=== PATIENT | female | born 1935 | race Caucasian/White ===

== ENCOUNTER 2023-03-09 09:02 | Emergency (ER) | payer OTHER ==
--- OUTSIDE RECORDS SUMMARY | 2023-03-09 09:05 | XMS REPORT | Clinical Summary ---
:1935 Author Organization [facility] Address [address] [place] [address] Care Team Providers Name Role Phone Erlinda Connolly MD Unavailable Erlinda Connolly MD Unavailable Marie Walker APRN Unavailable Boni Connolly MD Unavailable Terra Kwan MD Primary Care Provider Allergies Active Allergy Reactions Severity Noted Date Comments Grtxfxza-Sysndvmwjz-Jeylnwwde 07/09/2015 Inflamation Medications Medication Sig Dispensed Refills Start Date End Date Status carvedilol (COREG) Take 6.25 mg by 0 Active 6.25 mg tablet mouth daily. pravastatin Take 40 mg by 0 Acti ve (PRAVACHOL) 40 mg mouth twice tablet daily. montelukast Take 10 mg by 0 Acti ve (SINGULAIR) 10 mg mouth daily. tablet acetaminophen Take 500 mg by 0 A ctive (TYLENOL) 500 mg mouth as needed. tablet furosemide (LASIX) 20 Take 20 mg by 0 07/13/2017 Active mg tablet mouth every morning. cloNIDine HCl TAKE 1 TABLET BY 1 02/26/2019 Active (CATAPRES) 0.1 mg MOUTH ONCE DAILY tablet nystatin (MYCOSTATIN) Apply topically 30 g 1 03/26/2019 Active 100,000 units/g to affected powderIndications: area(s) 3 (three) Malignant neoplasm of times a day. Left right female breast, breast skin fold not otherwise specified, Mucocutaneous candidiasis tamoxifen (NOLVADEX) Take 1 tablet (20 45 tablet 0 02/06/2020 Active 20 mg mg) by mouth tabletIndications: daily. Personal history of malignant neoplasm of breast venlafaxine Take 1 capsule 45 capsule 0 02/06/2020 A ctive (EFFEXOR-XR) 37.5 mg (37.5 mg) by 24 hr mouth daily. capsuleIndications: Personal history of malignant neoplasm of breast Active Problems Problem Noted Date Menopausal flushing 08/04/2015 Infiltrating lobular carcinoma of breast 04/03/2015 Surgical History Surgery Date Site/Laterality Comments KNEE SURGERY APPENDECTOMY Medical History Medical History Date Comments Breast cancer Hypertension Hyperlipidemia Family History Medical History Relation Name Comments -Head and Neck Other niece -Breast cancer Sister -Head and Neck Sister -Lymphoma Sister Relation Name Status Comments Other niece Alive Sister Social History Tobacco Use Types Packs/Day Years Used Date Smoking Tobacco: Never Smokeless Tobacco: Never Alcohol Use Standard Drinks/Week Comments No 0 (1 standard drink = 0.6 oz pure alcoho l) Sex Assigned at Date Recorded Not on file Obstetrics History Last Filed Vital Signs Not on file Plan of Treatment Health Maintenance Due Date Last Done Comments COVID-19 Vaccination (#1) 11/09/1940 Results Not on fileafter 03/09/2022 Insurance Payer Benefit Plan / Subscriber ID Effective Dates Phone Addre ss Type Group MEDICARE MEDICARE PART [id number] 1999-Yared [phone] [facility] A AND B t 2 SOLUTIONS [address] [place] [address] GENERIC GENERIC [id number] 2016-Yared [phone] [address] [address] [place] [address] [place] [address] Bessie Herman Personal/Family Self 1935 [id number] [place] [address] ([address]) [address] [place] [address] Bessie Herman Personal/Family Self 1935 [id number] [address] [place] [address] Care Teams Grades 1 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
--- OUTSIDE RECORDS SUMMARY | 2023-03-09 09:10 | XMS REPORT | Continuity of Care Document ---
:1935 Author Organization [facility] t Address [address] [place] [address] [place] [id number] Care Team Providers Name Role Phone Brenda Irizarry MD Primary Care Physician SYSTEM, PROVIDER NOT IN Attending Clinician Unavailable Erlinda Connolly Attending Clinician BRENDA IRIZARRY Attending Clinician Unavailable SPIKE COLLINS Attending Clinician Unavailable Lynette Chang Attending Clinician PUJA DAVILA APRN Attending Clinician Unavailable BENITO BAEZ Attending Clinician Unavailable JOYCE RAMSEY M.D. Attending Clinician Unavailable Swathi Wilson Attending Clinician Tobin Castorena Attending Clinician PUJA DAVILA, DAVID Attending Clinician Unavailable Joyce Ramsey Attending Clinician Raul Diaz Attending Clinician VISIT, NURSE STRB XRLIZZY Attending Clinician Unavailable Boni Connolly Attending Clinician BENITO BAEZ Admitting Clinician Unavailable Joyce Ramsey Admitting Clinician Rual Diaz Admitting Clinician Payers Payer Name Policy Type Policy Number Effective Date Expiration Date S ource MEDICARE PART A [id number] 1999 AND B 00:00:00 GENERIC [id number] 2016 00:00:00 Problems Condition Condition Condition Status Onset Resolution Last Treating Co mments Source Name Details Category Date Date Treatment Clinician Date Asthma Asthma Diagnosis Active 2022-11-20 Me moria (disorder) (disorder) 11-17 10:25:15 l Active 00:00: [place] 11/17/2022 00 Diagnosis 11/20/2022 Medical Group, OPID Pearson, Pearson,[facility] Family Medicine [place] Gastroesop Gastroeso Diagnosis Active 2022-11-20 Memoria hageal phageal 11-17 10:25:15 l reflux reflux 00:00: [place] disease disease 00 (disorder) (disorder) Active 11/17/2022 Diagnosis 11/20/2022 Medical Group, OPID Pearson, Pearson,[facility] Family [facility] [place] Z85.3 - Z85.3 - Diagnosis Active 2018-062020-03-24 Memoria PERSONAL PERSONAL 0-10 11:03:00 l HISTORY OF HISTORY OF 00:01: He rmann MALIGNANT MALIGNANT 00 Active 03/28/2019 OPID Pearson C50.911 - C50.911 - Diagnosis Active 2019-03-20 Memoria MALIGNANT MALIGNANT 3- 11:20:00 l NEOPLASM NEOPLASM 00:01: Conner [facility]well [facility] S[facility] Active 09/06/2018 OPID Pearson C50.919 - C50.919 Diagnosis Active 2016-01-19 Memoria MALIGNANT - 3- 10:10:00 l NEOPLASM MALIGNANT 00:01: Maribeth nn OF UNSP NEOPLASM 00 SIT OF UNSP SIT Active 08/18/2015 OPID Pearson Menopausal Menopausal Disease Active U lashell flushing flushing 2-16 ity of 00:00: [place] 00 MD [facility] Infiltrati Infiltrati Disease Active 2014-06 U lashell ng lobular ng lobular 0-16 it y of carcinoma carcinoma [place] breast of breast 00 MD [facility] Lobular Lobular Problem Active 2022-01-21 Me colin carcinoma carcinoma 8-07 03:12:18 l of breast of breast 00:00: Herm gunnar (disorder) (disorder) 00 Active 01/23/2015 Problem 01/21/2022 Data migrated from [employer] on 02/07/15. Medical Group, OPID Pearson, Pearson Breast Breast Problem Active 2016-01-22 John denise lump lump 7-16 00:03:48 l (finding) (finding) 00:00: Herm gunnar Active 00 01/01/2015 Problem 01/22/2016 Data migrated from [employer] on 01/21/15. OPID Pearson Acute Acute Problem Active 2016-01-22 Memor ia sinusitis sinusitis 5- 00:03:48 l (disorder) (disorder) 00:00: He renée Active 00 10/27/2014 Problem 01/22/2016 Data migrated from [employer] on 01/21/15.
Data migrated from [employer] on 01/03/15.<b r/>Data migrated from [employer] on 01/02/15.<b r/>Data migrated from [employer] on 12/24/14. OPID Pearson ABDOMINAL ABDOMINAL Diagnosis Active 2014-09-23 Memoria PAIN-789.0 PAIN-789.0 2-23 07:56:00 l / RECTAL / RECTAL 00:00: Conner maxwell BLEEDING-5 BLEEDING-5 00 Active 08/11/2014 Pearson Chronic Chronic Problem Active 2022-01-21 Me moria neck pain neck pain 6-13 03:12:18 l (finding) (finding) 00:00: Herm gunnar Active 00 11/29/2013 Problem 01/21/2022 Data migrated from [employer] on 11/15/14. 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 History of History of Problem Resolve [place] essential essential d Phys ici hypertensi hypertensi an s on on History of History of Problem Resolve [place] Gastric Gastric d Physici reflux reflux ans History of History of Problem Resolve [place] [facility] d Physici cholestero cholestero an s l l UTI UTI Problem Active [place] (urinary (urinary Physic i tract tract ans infection) infection) Post-opera Post-opera Problem Active U T tive state tive state Ph ysici ans Postop Postop Problem Active UT check check Physici ans Renal Renal Problem Active [place] insufficie insufficie Ph ysici ncy ncy ans Retained Retained Problem Active [place] suture, suture, Physici subsequent subsequent an s encounter encounter 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 Physici ans Malignant Malignant Problem Resolve 2022-01-21 Memoria tumor of tumor of d 03:12:18 l breast breast [place] (disorder) (disorder) Resolved Problem 01/21/2022 Medical Group, OPID Pearson, Pearson Dysuria Dysuria Problem Resolve 2022-01-21 M emoria (finding) (finding) d 03:12:18 l Resolved [place] Problem 01/21/2022 Medical Group, OPI Pearson, Pearson History of History Problem Resolve 2022-01-21 Memoria total knee of total d 03:12:18 l arthroplas knee Conner n ty arthroplas (situation ty ) (situation ) Resolved Problem 01/21/2022 Medical Group, OPID Pearson, Pearson Acute Acute Problem Active 2017-11-30 Memor ia urinary urinary 11:32:06 l tract tract Vadim infection infection (disorder) (disorder) Active Problem 11/30/2017 Medical Group, OPID Pearson, Pearson Clostridiu Clostridi Problem Active 2022-01-21 Memoria m um 03:12:18 l difficile difficile Herm gunnar (organism) (organism) Active Problem 01/21/202215: +C.diffici le - Stool
Problem added by Discern Expert. 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 Pearson,[facility] Dependent Dependent Problem Active 2022-11-20 Memoria edema edema 10:25:15 l (finding) (finding) Herm gunnar Active Problem 11/20/2022 Medical Group,[facility] Hyperlipid Hyperlipi Problem Active 2022-11-20 Memoria emia demia 10:25:15 l (disorder) (disorder) He rmann Active Problem 11/20/2022 Medical Group, OPID Pearson,[facility] Incontinen Incontine Problem Active 2022-11-20 Memoria ce nce 10:25:15 l (finding) (finding) Herm gunnar Active Problem 11/20/2022 Medical Group, OPID Pearson,[facility] Long-term Problem Active 2022-11-20 Me moria current Long-term 10:25:15 l use of current [place] drug use of therapy drug (situation therapy ) (situation ) Active Problem 11/20/2022 Medical Group, OPID Pearson,[facility] Family Medicine [facility] Low back Low back Problem Active 2022-11-20 Memoria pain pain 10:25:15 l (disorder) (disorder) He rmann Active Problem 11/20/2022 Medical Group, OPID Pearson,[facility] Patient Patient Problem Active 2022-11-20 Me moria encounter encounter 10:25:15 l status status Vadim (finding) (finding) Active Problem 11/20/2022 Medical Group, OPID Pearson,[facility] Allergic Allergic Problem Active 2016-01-22 Memoria dispositio dispositio 00:03:48 l n n Vadim (disorder) (disorder) Active Problem 01/22/2016 OPID Pearson Cholestero Problem Active 2016-01-22 M emoria l Cholestero 00:03:48 l (substance l Conner n ) (substance ) Active Problem 01/22/2016 OPID Pearson Diarrhea Diarrhea Problem Active 2016-01-22 Memoria (finding) (finding) 00:03:48 l Active Vadim Problem 01/22/2016 OPID Pearson Hypertensi Hypertens Problem Active 2016-01-22 Memoria ve tyrone 00:03:48 l disorder, disorder, Herm gunnar systemic systemic arterial arterial (disorder) (disorder) Active Problem 01/22/2016 OPID Pearson Hypertensi Hypertens Problem Active 2016-01-22 Memoria ve episode tyrone 00:03:48 l (disorder) episode Maribeth nn (disorder) Active Problem 01/22/2016 Data migrated from [facility] on 11/15/14. OPID Pearson Rectal Rectal Problem Active 2016-01-22 John denise hemorrhage hemorrhage 00:03:48 l (disorder) (disorder) He rmann Active Problem 01/22/2016 OPID Pearson Z12.31 - Z12.31 - Diagnosis Active 2022-05-13 Memoria ENCNTR ENCNTR 11:02:00 l SCREEN SCREEN [place] MAMMOGRAM MAMMOGRAM FOR MA FOR MA Active OPID Pearson ABDMNAL ABDMNAL Diagnosis Active 2014-09-23 Memoria PAIN PAIN 07:56:00 l UNSPCF UNSPCF [place] SITE SITE Active Pearson Datatype(D Datatype( Diagnosis Active 2014-09-23 Memoria G1.4)- DG1.4)- 07:56:00 l Active Conner n Pearson Abdominal Problem Resolve 2016-01-22 2016-01-22 Memoria pain Abdominal d 2-20 00:03:48 00:03:48 l (finding) pain 00:00: [place] (finding) 00 Resolved 08/08/2014 Problem 01/22/2016 Data migrated from [employer] on 12/24/14. OPID Pearson Altered Altered Problem Resolve 2016-01-22 2016-01-22 Memoria bowel bowel d 2-20 00:03:48 00:03:48 l function function 00:00: Conner n (finding) (finding) 00 Resolved 08/08/2014 Problem 01/22/2016 Data migrated from [employer] on 12/24/14. OPID Pearson Melena Melena Problem Resolve 2016-01-22 2016-01-22 Memoria (disorder) (disorder) d 2-20 00:03:48 00:03:48 l Resolved 00:00: [place] 08/08/2014 00 Problem 01/22/2016 Data migrated from [employer] on 12/24/14. OPID Pearson Rectal Rectal Problem Resolve 2016-01-22 2016-01-22 Memoria pain pain d 2-20 00:03:48 00:03:48 l (finding) (finding) 00:00: Herm gunnar Resolved 00 08/08/2014 Problem 01/22/2016 Data migrated from [employer] on 12/24/14. OPID Pearson Sinusitis Sinusitis Problem Resolve 2016-01-22 2016-01-22 Memoria (disorder) (disorder) d 4-21 00:03:48 00:03:48 l Resolved 00:00: [place] 10/07/2013 00 Problem 01/22/2016 Data migrated from [employer] on 01/03/15.<b r/>Data migrated from [employer] on 01/02/15. OPID Pearson Acute Acute Problem Resolve 2016-01-22 2016-01-22 Memoria upper upper d 12-25 00:03:48 00:03:48 l respirator respirator 00:00: He rmann y y 00 infection infection (disorder) (disorder) Resolved 12/26/2011 Problem 01/22/2016 Data migrated from [employer] on 01/03/15.<b r/>Data migrated from [employer] on 01/02/15. OPID Pearson History of Past Illness Condition Condition Condition Status Onset Resolution Last Treating Co mments Source Name Details Category Date Date Treatment Clinician Date Mild Mild Diagnosis 2022-11-20 2022-11-20 Memoria intermitte intermitte - 10:25:15 10:25:15 l nt asthma nt asthma 17:00: Herm gunnar (disorder) (disorder) 00 11/17/2022 Diagnosis 11/20/2022 [facility] Allergic Allergic Diagnosis 2022-11-20 2022-11-20 Memoria rhinitis rhinitis - 10:25:15 10:25:15 l (disorder) (disorder) 15:42: He rmann 3 Diagnosis 11/20/2022 Medical Group, OPID Pearson, Pearson,[facility] Gastroesop Gastroeso Diagnosis 2022-11-20 2022-11-20 Memoria hageal phageal 11-17 10:25:15 10:25:15 l reflux reflux 15:39: Vadim disease disease 00 without without esophagiti esophagiti s s (disorder) (disorder) 11/17/2022 Diagnosis 11/20/2022 [facility] Essential Essential Diagnosis 2022-11-20 2022-11-20 Memoria hypertensi hypertensi - 10:25:15 10:25:15 l on on 15:36: [place] (disorder) (disorder) 00 11/17/2022 Diagnosis 11/20/2022 [facility] Acute Acute Diagnosis 2022-10-06 2022-10-06 Memoria bronchitis bronchitis 4-17 09:32:21 09:32:21 l (disorder) (disorder) 19:58: He rmann 3 Diagnosis 10/06/2022 [facility] Family [facility] Cough Cough Diagnosis 2022-10-06 2022-10-06 Memoria (finding) (finding) 10-03 09:32:21 09:32:21 l 10/03/2022 19:58: Conner n Diagnosis 00 10/06/2022 Medical Group,[facility] Family [facility] Exacerbati Exacerbat Diagnosis 2021-062022-04-18 2022-04-18 Memoria on of ion of 0- 02:54:10 02:54:10 l asthma asthma 13:51: Vadmi (disorder) (disorder) 00 04/15/2022 Diagnosis 04/18/2022 Medical Group Wheezing Wheezing Diagnosis 2021-062022-04-16 2022-04-16 Memoria (finding) (finding) 04:08:24 04:08:24 l 04/13/2022 14:37: Conner maxwell Diagnosis 00 04/16/2022 Medical Group Edema, Edema, Problem 2021-12-04 2021-12-04 Memoria unspecifie unspecifie 12-01 03:13:53 03:13:53 l d d 15:45: Vadim 12/01/2021 00 12/04/2021 Medical Group Allergic Allergic Problem 2021-12-04 2021-12-04 Memoria rhinitis, rhinitis, 12-01 03:13:53 03:13:53 l unspecifie unspecifie 15:39: Mandeep chinchilla d d 12/01/2021 12/04/2021 Medical Group Essential Essential Problem 2021-12-04 2021-12-04 Memoria (primary) (primary) 11-24 03:13:53 03:13:53 l hypertensi hypertensi 16:43: Mandeep chinchilla on on 11/24/2021 12/04/2021 Medical Group Chronic Chronic Problem 2021-12-04 2021-12-04 Memoria kidney kidney - 03:13:53 03:13:53 l disease, disease, 16:43: Conner maxwell stage 4 stage 4 00 (severe) (severe) 11/24/2021 12/04/2021 Medical Group Other Other Problem 2021-12-04 2021-12-04 M emoria abnormal abnormal 11-24 03:13:53 03:13:53 l glucose glucose 16:43: Vadim 11/24/2021 00 12/04/2021 Medical Group Other Other Problem 2021-12-04 2021-12-04 M emoria hyperlipid hyperlipid 11-24 03:13:53 03:13:53 l emia emia 16:43: Vadim 11/24/2021 00 12/04/2021 Medical Group Other long Other Problem 2021-12-04 2021-12-04 Memoria term alf 11-24 03:13:53 03:13:53 l (current) (current) 16:43: Kary maher drug drug 00 therapy therapy 11/24/2021 12/04/2021 Medical Group Malignant Malignant Problem 2018-09-15 2018-09-15 Memoria neoplasm neoplasm - 11:10:17 11:10:17 l of of 04:47: Vadim unspecifie unspecifie 15 d site of d site of unspecifie unspecifie d female d female breast breast 03/03/2018 9 MH OPID Pearson Unspecifie Unspecifi Problem 2017-11-22 2017-11-22 Memoria d ed 08-23 11:31:20 11:31:20 l hydronephr hydronephr 05:33: He renée osis osis 08/23/2017 8 MH OPID Pearson Allergies, Adverse Reactions, Alerts Allergy Allergy Status Severity Reaction(s) Onset Inactive Treating Comm ents Source Name Type Date Date Clinician Neomycin Propensi Active Inflamati Uni vers -Bacitra ty to -21 on ity of flory-Poly adverse 00:00: [place] myxin reaction 00 MD [facility] bacitrac bacitrac Active Memori a in in l Vadim bacitrac bacitrac Active Memori a in/neomy in/neomy l flory/poly flory/poly Conner maxwell myxin B myxin B topical< topical< sup>1</s sup>1</s up> up> Family History Family Member Diagnosis Comments Start Date Stop Date Source Unknown Family history of Family History [facility] Member Pelvic prolapse Unknown Family history of Family History [facility] Family Member Urinary incontinence Unknown Family history of Family History [facility] Family Member cerebrovascular accident (CVA) Unknown Family history of Family History [facility] Family Member cardiac disorder Unknown Family history of Family History [facility] Family Member essential hypertension Unknown FHx: breast cancer Family History [facility] Family Member Natural -Lymphoma [facility] MD [facility] [place] Natural -Breast cancer [facility] MD Albert [facility]ance r [place] Natural -Head and Neck [facility] MD Albert Cance r [place] Other -Head and Neck [facility] Conner Cance [facility] Social History Social Habit Start Date Stop Date Quantity Comments Source Alcohol intake 2020-03-12 2020-03-12 Current University 00:00:00 00:00:00 non-drinker of [place] MD Jung lakhani alcohol ([facility]) [facility] Tobacco use and 2016-02-05 2016-02-05 Smokeless tobacco Un iversity of exposure 00:00:00 00:00:00 non-user [place] MD Saqib alanis [facility] Social History 2015-02-27 2015-02-27 [facility] 18:46:29 18:46:29 Sex Ass[birth year] At [birth year] [facility] 00:00:00 00:00:00 [place] Saqib [facility] Smoking Status Start Date Stop Date Source Tobacco smoking status [facility] Medications Ordered Filled Start Stop Current Ordering Indication Dosage Frequency Signature Comments Components Source Medication Medication Date Date Medication? Clinician (SIG) Name Name Terrie Yes 100 mg = 1 Mem oria Perles 100 6-01 cap, PO, l mg oral 15:42: Q8H, PRN Conner n capsule 00 cough, do not crush or chew, X 10 day, # 30 cap, 0 Refill(s), Pharmacy: [facility], 147.32, cm, 11/17/22 10:24:00 CDT, Height, 56.989, kg, 11/17/22 10:24:00 CDT, Weight hydrALAZINE Yes 25 mg = 1 M emoria 25 mg oral 11-17 tab, PO, l tablet 15:41: TID, # 270 Maribeth nn 00 tab, 1 Refill(s), Pharmacy: [facility], 147.32, cm, 11/17/22 10:24:00 CDT, Height, 56.989, kg, 11/17/22 10:24:00 CDT, Weight pravastatin 2022-0 Yes = 1 tab, Me moria 40 mg oral 6-01 PO, l tablet 15:41: Bedtime, # Maribeth nn 00 90 tab, 1 Refill(s), Pharmacy: [facility], 147.32, cm, 11/17/22 10:24:00 CDT, Height, 56.989, kg, 11/17/22 10:24:00 CDT, Weight montelukast 2022-0 Yes = 1 tab, Me moria 10 mg oral 6-01 PO, QPM, l tablet 15:41: FOR Vadim 00 ALLERGIES. , # 90 tab, 1 Refill(s), Pharmacy: [facility], 147.32, cm, 11/17/22 10:24:00 CDT, Height, 56.989, kg, 11/17/22 10:24:00 CDT, Weight amLODIPine- 2022-0 Yes 1 tab, PO, Memoria olmesartan 6-01 Breakfast, l 10 mg-40 mg 15:40: # 90 tab, H ermann oral tablet 00 1 Refill(s), Pharmacy: [facility], 147.32, cm, 11/17/22 10:24:00 CDT, Height, 56.989, kg, 11/17/22 10:24:00 CDT, Weight carvedilol 2022-0 Yes = 1 tab, Mem oria 6.25 mg 6-01 PO, BID, # l oral tablet 15:40: 180 tab, 1 [place] 00 Refill(s), Pharmacy: [facility], 147.32, cm, 11/17/22 10:24:00 CDT, Height, 56.989, kg, 11/17/22 10:24:00 CDT, Weight Medrol 4 mg 2022-0 Yes = 1 pkt, Me moria oral tablet 4-17 PO, ONCE, l 20:00: as Vadim 00 directed on package labeling, # 21 tab, 0 Refill(s), Pharmacy: [facility], 147.32, cm, 10/03/22 14:26:00 CDT, Height, 58.636, kg, 10/03/22 14:26:00 CDT, Weight Flonase 2022-0 Yes 1 spray, Memori a 0.05 mg/inh 4-17 NASAL, l nasal spray 19:59: BID, # 16 H ermann 00 gm, 3 Refill(s), Pharmacy: [facility], 147.32, cm, 10/03/22 14:26:00 CDT, Height, 58.636, kg, 10/03/22 14:: CDT, Weight Azithromyci 2022-0 Yes See Memori a n 5 Day 4-17 Instructio l Dose Pack 19:58: ns, Take 2 He rmann 250 mg oral 00 tablets by tablet mouth the first day then 1 tablet by mouth days 2-5., X 5 day, # 6 tab, 0 Refill(s), Pharmacy: [facility], 147.32, cm, 10/03/22 14:26:00 CDT, Height, 58.636, kg, 10/03/22 14:: CDT, Weight montelukast 2022-0 Yes = 1 tab, Me moria 10 mg oral 2-14 PO, QPM, l tablet 22:50: FOR Vadim ALLERGIES. , # 90 tab, 1 Refill(s), Pharmacy: [facility], 147.32, cm, 06/01/22 10:16:00 FINANCE ANALYST, Height, 60.057, kg, 06/01/22 10:16:00 FINANCE ANALYST, Weight albuterol 2022-0 Yes = 1 vial, Mem oria 0.083% 2-14 INHALATION l inhalation 22:50: , Q8H, PRN H ermann solution 00 NEEDED FOR SHORTNESS OF BREATH, # 180 mL, 3 Refill(s), Pharmacy: [facility], 147.32, cm, 06/01/22 10:16:00 FINANCE ANALYST, Height, 60.057, kg, 06/01/22 10:16:00 FINANCE ANALYST, Weight albuterol Yes = 1 vial, Mem oria 0.083% 2-13 INHALATION l inhalation 18:52: , Q8H, PRN H ermann solution 00 NEEDED FOR SHORTNESS OF BREATH, # 180 mL, 0 Refill(s), Pharmacy: [facility], 147.32, cm, 06/01/22 10:16:00 FINANCE ANALYST, Height, 60.057, kg, 06/01/22 10:16:00 FINANCE ANALYST, Weight pravastatin Yes = 1 tab, Me moria 40 mg oral 2-13 PO, l tablet 18:52: Bedtime, # Maribeth nn 00 90 tab, 0 Refill(s), Pharmacy: [facility], 147.32, cm, 06/01/22 10:16:00 FINANCE ANALYST, Height, 60.057, kg, 06/01/22 10:16:00 FINANCE ANALYST, Weight hydrALAZINE 2021-06 Yes 25 mg = 1 M emoria 25 mg oral 2-14 tab, PO, l tablet 17:04: TID, # 270 Maribeth nn 00 tab, 1 Refill(s), Pharmacy: [facility], 147.32, cm, 06/01/22 10:16:00 FINANCE ANALYST, Height, 60.057, kg, 06/01/22 10:16:00 FINANCE ANALYST, Weight amLODIPine- 2021-06 Yes 1 tab, PO, Memoria olmesartan 2-14 Breakfast, l 10 mg-40 mg 17:04: # 90 tab, H ermann oral tablet 00 1 Refill(s), Pharmacy: [facility], 147.32, cm, 06/01/22 10:16:00 FINANCE ANALYST, Height, 60.057, kg, 06/01/22 10:16:00 FINANCE ANALYST, Weight carvedilol 2021-06 Yes = 1 tab, Mem oria 6.25 mg 2-14 PO, BID, # l oral tablet 17:04: 180 tab, 1 [place] 00 Refill(s), Pharmacy: [facility], 147.32, cm, 06/01/22 10:16:00 FINANCE ANALYST, Height, 60.057, kg, 06/01/22 10:16:00 FINANCE ANALYST, Weight pravastatin 2021-06 Yes 40 mg = 1 M emoria 40 mg oral 2-14 tab, PO, l tablet 17:04: Bedtime, # Maribeth nn 00 90 tab, 1 Refill(s), Pharmacy: [facility], hold as refill, 147.32, cm, 06/01/22 10:16:00 FINANCE ANALYST, Height, 60.057, kg, 06/01/22 10:16:00 FINANCE ANALYST, Weight montelukast 2021-06 Yes = 1 tab, Me moria 10 mg oral 2-14 PO, QPM, l tablet 17:04: FOR [place] 00 ALLERGIES. , # 90 tab, 1 Refill(s), Pharmacy: [facility], 147.32, cm, 06/01/22 10:16:00 FINANCE ANALYST, Height, 60.057, kg, 06/01/22 10:16:00 FINANCE ANALYST, Weight Tessalon 2021-06 Yes 100 mg = 1 Mem oria Perles 100 0-28 cap, PO, l mg oral 13:52: TID, X 10 Maribeth nn capsule 00 day, # 30 cap, 0 Refill(s), Pharmacy: [facility], 147.32, cm, 04/15/22 8:18:00 CDT, Height, 63.75, kg, 04/15/22 8:18:00 CDT, Weight Nebulizer 2021-06 Yes 1 ea, Memoria 0-26 MISC, l 14:42: ONCALL, # [place] 00 1 ea, 0 Refill(s), Pharmacy: [facility], 147.32, cm, 04/13/22 9:18:00 CDT, Height, 63.438, kg, 04/13/22 9:18:00 CDT, Weight Nebulizer 2021-06 Yes 1 ea, Memoria Mask Adult 0-26 MISC, PRN, l Misc/Other 14:42: PRN As Maribeth nn 00 directed by physician, # 1 ea, 0 Refill(s), Pharmacy: [facility], 147.32, cm, 04/13/22 9:18:00 CDT, Height, 63.438, kg, 04/13/22 9:18:00 CDT, Weight albuterol 2021-06 Yes 2.49 mg = Mem oria 0.083% 0-26 3 mL, NEB, l inhalation 14:42: Q8H, PRN Her collier solution 00 as needed for shortness of breath, # 60 ea, 1 Refill(s), Pharmacy: [facility], 147.32, cm, 04/13/22 9:18:00 CDT, Height, 63.438, kg, 04/13/22 9:18:00 CDT, Weight predniSONE 2021-06 Yes See Memoria 20 mg oral 0-26 Instructio l tablet 14:37: ns, take 2 Maribeth nn 00 tabs for 5 days, 1 tab for 5 days and 1/2 tab for 5 days with food or milk, # 18 tab, 0 Refill(s), Pharmacy: [facility], 147.32, cm, 04/13/22 9:18:00 CDT, Height, 63.438, kg, 04/13/22 9:18:00 CDT, Weight carvedilol Yes = 1 tab, Mem oria 6.25 mg 8-02 PO, BID, # l oral tablet 12:02: 180 tab, 1 Vadim 00 Refill(s), Pharmacy: [facility], 147.32, cm, 12/01/21 10:14:00 CDT, Height, 66.364, kg, 12/01/21 10:14:00 CDT, Weight Flonase Yes 1 spray, Memori a 0.05 mg/inh 6-15 NASAL, l nasal spray 15:47: BID, # 16 H ermann 00 gm, 3 Refill(s), Pharmacy: [facility], 147.32, cm, 12/01/21 10:14:00 CDT, Height, 66.364, kg, 12/01/21 10:14:00 CDT, Weight carvedilol Yes See Memoria 6.25 mg 6-15 Instructio l oral tablet 15:47: ns, TAKE He rmann 00 ONE TABLET BY MOUTH TWICE DAILY, # 180 tab, 1 Refill(s), Pharmacy: [facility], pt will refill later, 147.32, cm, 12/01/21 10:14:00 CDT, Height, 66.364, kg, 12/01/21 10:14:00 CDT, Weight amLODIPine- 2021-0 Yes 1 tab, PO, Memoria olmesartan 6-15 Breakfast, l 10 mg-40 mg 15:47: # 90 tab, H ermann oral tablet 00 1 Refill(s), Pharmacy: [facility], 147.32, cm, 12/01/21 10:14:00 CDT, Height, 66.364, kg, 12/01/21 10:14:00 CDT, Weight hydrALAZINE 0 Yes 25 mg = 1 M emoria 25 mg oral 6-15 tab, PO, l tablet 15:47: TID, # 270 Maribeth nn 00 tab, 1 Refill(s), Pharmacy: [facility], 147.32, cm, 12/01/21 10:14:00 CDT, Height, 66.364, kg, 12/01/21 10:14:00 CDT, Weight montelukast 0 Yes = 1 tab, Me moria 10 mg oral 6-15 PO, QPM, l tablet 15:47: FOR Vadim 00 ALLERGIES. , # 90 tab, 1 Refill(s), Pharmacy: [place] [id number], 147.32, cm, 12/01/21 10:14:00 CDT, Height, 66.364, kg, 12/01/21 10:14:00 CDT, Weight pravastatin 2021-0 Yes 40 mg = 1 M emoria 40 mg oral 6-15 tab, PO, l tablet 15:47: Bedtime, # Maribeth nn 00 90 tab, 1 Refill(s), Pharmacy: [facility], hold as refill, 147.32, cm, 12/01/21 10:14:00 CDT, Height, 66.364, kg, 12/01/21 10:14:00 CDT, Weight Lasix 20 mg 2021-0 Yes 20 mg = 1 M emoria oral tablet 6-15 tab, PO, l 15:46: Daily, # Vadim 00 30 tab, 0 Refill(s), Pharmacy: [facility], 147.32, cm, 12/01/21 10:14:00 CDT, Height, 66.364, kg, 12/01/21 10:14:00 CDT, Weight montelukast 2021-0 Yes = 1 tab, Me moria 10 mg oral 2-09 PO, QPM, l tablet 01:57: FOR V[place]im 00 ALLERGIES. , # 90 tab, 1 Refill(s), Pharmacy: [facility], 147.32, cm, 07/07/21 10:40:00 FINANCE ANALYST, Height, 65.057, kg, 07/07/21 10:40:00 FINANCE ANALYST, Weight Amlodipine 0 Yes 1 tab, PO, M emoria 10 MG / 1-19 Breakfast, l Olmesartan 17:01: # 90 tab, He rmann medoxomil 00 1 40 MG Oral Refill(s), Tablet Pharmacy: [facility] 482, 147.32, cm, 07/07/21 10:40:00 FINANCE ANALYST, Height, 65.057, kg, 07/07/21 10:40:00 FINANCE ANALYST, Weight Hydralazine 0 Yes 25 mg = 1 M emoria Hydrochlori 1-19 tab, PO, l de 25 MG 17:01: TID, # 270 Her collier Oral Tablet 00 tab, 1 Refill(s), Pharmacy: [facility], 147.32, cm, 07/07/21 10:40:00 FINANCE ANALYST, Height, 65.057, kg, 07/07/21 10:40:00 FINANCE ANALYST, Weight Amlodipine 2020-06 Yes 1 tab, PO, M emoria 10 MG / 2-23 Daily, # l Olmesartan 22:11: 30 tab, 0 He rmann medoxomil 00 Refill(s), 40 MG Oral Pharmacy: [facility], 147.32, cm, 06/03/21 10:12:00 FINANCE ANALYST, Height, 64.091, kg, 06/03/21 10:12:00 FINANCE ANALYST, Weight Hydralazine 2020-06 Yes 25 mg = 1 M emoria Hydrochlori 2-23 tab, PO, l de 25 MG 22:11: BID, # 60 Herm gunnar Oral Tablet 00 tab, 0 Refill(s), Pharmacy: [facility] 482, 147.32, cm, 06/03/21 10:12:00 FINANCE ANALYST, Height, 64.091, kg, 06/03/21 10:12:00 FINANCE ANALYST, Weight montelukast 2020-06 Yes = 1 tab, Me moria 10 mg oral 2-16 PO, QPM, l tablet 16:37: FOR Vadim 00 ALLERGIES. , # 90 tab, 1 Refill(s), Pharmacy: [facility], hold as refill, 147.32, cm, 06/03/21 10:12:00 FINANCE ANALYST, Height, 64.091, kg, 06/03/21 10:12:00 FINANCE ANALYST, Weight pravastatin 2020-06 Yes 40 mg = 1 M emoria 40 mg oral 2-16 tab, PO, l tablet 16:37: Bedtime, # Maribeth nn 00 90 tab, 1 Refill(s), Pharmacy: [facility], hold as refill, 147.32, cm, 06/03/21 10:12:00 FINANCE ANALYST, Height, 64.091, kg, 06/03/21 10:12:00 FINANCE ANALYST, Weight carvedilol 2020-06 Yes See Memoria 6.25 mg 2-16 Instructio l oral tablet 16:37: ns, TAKE He rmann 00 ONE TABLET BY MOUTH TWICE DAILY, # 180 tab, 1 Refill(s), Pharmacy: [place] [address], pt will refill later, 147.32, cm, 06/03/21 10:12:00 FINANCE ANALYST, Height, 64.091, kg, 06/03/21 10:12:00 FINANCE ANALYST, Weight Amlodipine 2020-06 Yes 1 tab, PO, M emoria 5 MG / 2-16 Daily, # l Olmesartan 16:36: 30 tab, 0 He rmann medoxomil 00 Refill(s), 40 MG Oral Pharmacy: [facility] 482, 147.32, cm, 06/03/21 10:12:00 FINANCE ANALYST, Height, 64.091, kg, 06/03/21 10:12:00 FINANCE ANALYST, Weight Atrovent Yes 2 spray, Memor ia Nasal 0.06% 1-05 NASAL, l nasal spray 15:35: TID, PRN He rm for cold symptoms, [place] in both nostrils, X 30 day, # 1 ea, 1 Refill(s), Pharmacy: [facility] 482, 147.32, cm, 06/23/20 9:00:00 FINANCE ANALYST, Height, 62.727, kg, 06/23/20 9:00:00 FINANCE ANALYST, Weight montelukast Yes = 1 tab, Me moria 10 mg oral 1-05 PO, QPM, l tablet 15:33: FOR [place] ALLERGIES. , # 90 tab, 1 Refill(s), Pharmacy: [facility] 482, 147.32, cm, 06/23/20 9:00:00 FINANCE ANALYST, Height, 62.727, kg, 06/23/20 9:00:00 FINANCE ANALYST, Weight carvedilol Yes See Memoria 6.25 mg 1-05 Instructio l oral tablet 15:33: ns, TAKE He ONE TABLET BY MOUTH TWICE DAILY, # 180 tab, 1 Refill(s), Pharmacy: [facility], pt will refill later, 147.32, cm, 06/23/20 9:00:00 FINANCE ANALYST, Height, 62.727, kg, 06/23/20 9:00:00 FINANCE ANALYST, Weight pravastatin Yes 40 mg = 1 M emoria 40 mg oral 1-05 tab, PO, l tablet 15:33: Bedtime, # Maribeth nn 00 90 tab, 1 Refill(s), Pharmacy: [facility] 482, 147.32, cm, 06/23/20 9:00:00 FINANCE ANALYST, Height, 62.727, kg, 06/23/20 9:00:00 FINANCE ANALYST, Weight losartan Yes = 1 tab, Memor ia 100 mg oral 1-05 PO, Daily, l tablet 15:32: # 90 tab, Conner n 00 1 Refill(s), Pharmacy: [facility] 482, 147.32, cm, 06/23/20 9:00:00 FINANCE ANALYST, Height, 62.727, kg, 06/23/20 9:00:00 FINANCE ANALYST, Weight carvedilol 2019-06 Yes 6.25mg Take 6.25 Univers (COREG) 1-03 mg by ity of 6.25 mg 04:53: mouth [place] tablet 06 daily. MD Leticia maxwell [facility] pravastatin 2019-06 Yes 40mg Take 40 mg Univers (PRAVACHOL) 1-03 by mouth ity of 40 mg 04:53: twice [place] tablet 06 daily. MD Leticia maxwell [facility] montelukast 2019-06 Yes 10mg Take 10 mg Univers (SINGULAIR) 1-03 by mouth ity of 10 mg 04:53: daily. [place] tablet 06 MD Leticia maxwell [facility] acetaminoph 2019-06 Yes 500mg Take 500 U nivers en 1-03 mg by ity of (TYLENOL) 04:53: mouth [place] 500 mg 06 needed. MD katelynn maxwell [facility] carvedilol 2019-06 Yes 6.25mg Take 6.25 Univers (COREG) 1-03 mg by ity of 6.25 mg 04:53: mouth [place] tablet 06 daily. MD Leticia maxwell [facility] carvedilol 2019-06 Yes 6.25mg Take 6.25 Univers (COREG) 1-03 mg by ity of 6.25 mg 04:53: mouth [place] tablet 06 daily. MD Leticia maxwell [facility] pravastatin 2019-06 Yes 40mg Take 40 mg Univers (PRAVACHOL) 1-03 by mouth ity of 40 mg 04:53: twice [place] tablet 06 daily. MD Leticia maxwell [facility] montelukast 2019-06 Yes 10mg Take 10 mg Univers (SINGULAIR) 1-03 by mouth ity of 10 mg 04:53: daily. [place] tablet 06 MD Leticia maxwell [facility] acetaminoph 2019-06 Yes 500mg Take 500 U nivers en 1-03 mg by ity of (TYLENOL) 04:53: [place] 500 mg 06 needed. MD katelynn Kelly [facility] pravastatin 2019-06 Yes 40mg Take 40 mg Univers (PRAVACHOL) 1-03 by mouth ity of 40 mg 04:53: twice [place] tablet 06 daily. MD Leticia maxwell [facility] montelukast 2019-06 Yes 10mg Take 10 mg Univers (SINGULAIR) 1-03 by mouth ity of 10 mg 04:53: daily. [place] [facility] 06 [facility] Yes 500mg Take 500 U nivers en 1-03 mg by ity of (TYLENOL) 04:53: [place] 500 mg 06 needed. [facility] carvedilol [facility]-06 Yes 6.25mg Take 6.25 Univers (COREG) 1-03 mg by ity of 6.25 mg 04:53: mouth [place] tablet 06 daily. MD Leticia maxwell [facility] pravastatin 2019-06 Yes 40mg Take 40 mg Univers (PRAVACHOL) 1-03 by mouth ity of 40 mg 04:53: twice [place] tablet 06 daily. MD Leticia maxwell [facility] montelukast 2019-06 Yes 10mg Take 10 mg Univers (SINGULAIR) 1-03 by mouth ity of 10 mg 04:53: daily. [place] [facility] acetaminoph 2019-06 Yes 500mg Take 500 U nivers en 1-03 mg by ity of (TYLENOL) 04:53: mouth [place] 500 mg 06 needed. [facility] carvedilol 2019-06 Yes 6.25mg Take 6.25 Univers (COREG) 1-03 mg by ity of 6.25 mg 04:53: mouth [place] tablet 06 daily. MD Leticia maxwell [facility] pravastatin 2019-06 Yes 40mg Take 40 mg Univers (PRAVACHOL) 1-03 by mouth ity of 40 mg 04:53: twice [place] tablet 06 daily. MD Leticia maxwell [facility] montelukast 2019-06 Yes 10mg Take 10 mg Univers (SINGULAIR) 1-03 by mouth ity of 10 mg 04:53: daily. [place] tablet 06 [facility] 2019-06 Yes 500mg Take 500 U nivers en 1-03 mg by ity of (TYLENOL) 04:53: mouth [place] 500 mg 06 needed. 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 [facility] Fluticasone 2020-0 Yes 1 spray, Me moria propionate 7-08 NASAL, l 0.05 15:58: BID, # 16 Vadim MG/ACTUAT 00 gm, 3 Metered Refill(s), Dose Nasal Pharmacy: [place] [facility] 482, 154.94, cm, 12/25/19 10:29:00 CDT, Height, 62.955, kg, 12/25/19 10:29:00 CDT, Weight carvedilol 2019-0 Yes See Memoria 6.25 mg 7-08 Instructio l oral tablet 15:57: ns, TAKE He rmann 00 ONE TABLET BY MOUTH TWICE DAILY, # 180 tab, 1 Refill(s), Pharmacy: [facility], pt will refill later, 154.94, cm, 12/25/19 10:29:00 CDT, Height, 62.955, kg, 12/25/19 10:29:00 CDT, Weight montelukast 2019-0 Yes = 1 tab, Me moria 10 mg oral 7-08 PO, QPM, l tablet 15:57: FOR [place] 00 ALLERGIES. , # 90 tab, 1 Refill(s), Pharmacy: [facility] 482, 154.94, cm, 12/25/19 10:29:00 CDT, Height, 62.955, kg, 12/25/19 10:29:00 CDT, Weight pravastatin 2019-0 Yes = 2 tab, Me moria 40 mg oral 7-08 PO, l tablet 15:57: Bedtime, # Maribeth nn 00 180 tab, 1 Refill(s), Pharmacy: [facility] 482, 154.94, cm, 12/25/19 10:29:00 CDT, Height, 62.955, kg, 12/25/19 10:29:00 CDT, Weight losartan 2020-0 Yes 100 mg = 1 Mem oria 100 mg oral 7-08 tab, PO, l tablet 15:52: Daily, # Vadim 00 90 tab, 0 Refill(s), Pharmacy: [facility] 482, 154.94, cm, 12/25/19 10:29:00 CDT, Height, 62.955, kg, 12/25/19 10:29:00 CDT, Weight amoxicillin 2019- Yes 500 mg = 1 Memoria 500 mg oral 7-08 cap, PO, l capsule 15:49: Q8H, with Maribeth nn 00 food, X 10 day, # 30 cap, 0 Refill(s), Pharmacy: [facility], 154.94, cm, 12/25/19 10:29:00 CDT, Height, 62.955, kg, 12/25/19 10:29:00 CDT, Weight carvedilol Yes See Memoria 6.25 mg 1-15 Instructio l oral tablet 17:29: ns, TAKE He rmann 00 ONE TABLET BY MOUTH TWICE DAILY, # 180 tab, 1 Refill(s), Pharmacy: [facility], pt will refill later montelukast Yes = 1 tab, Me moria 10 mg oral 1-15 PO, QPM, l tablet 17:26: FOR Vadim 00 ALLERGIES. , # 90 tab, 1 Refill(s), Pharmacy: [place] [address] pravastatin Yes = 2 tab, Me moria 40 mg oral 1-15 PO, l tablet 17:26: Bedtime, # Maribeth nn 00 180 tab, 1 Refill(s), Pharmacy: [facility] losartan 50 2019-0 Yes 50 mg = 1 M emoria mg oral 1-15 tab, PO, l tablet 17:26: Breakfast, Maribeth nn 00 # 90 tab, 1 Refill(s), Pharmacy: [place] [address] Surfak 2019-0 Yes 240 mg, Memoria Stool 1-15 PO, Daily, l Softener 16:56: 0 Vadim Refill(s) Surfak 2020-0 Yes 240 mg, Memoria Stool 1-15 PO, Daily, l Softener 16:56: 0 Vadim Refill(s) Clonidine 2018-06 Yes = 1 tab, John denise Hydrochlori 2-12 PO, Daily, l de 0.1 MG 19:06: # 30 tab, Her collier Oral Tablet 14 0 Refill(s), Pharmacy: [facility] 482 pravastatin 2018-06 Yes = 2 tab, Me moria 40 mg oral 2-05 PO, l tablet 22:35: Bedtime, # Maribeth nn 38 60 tab, 0 Refill(s), Pharmacy: [facility] 482 nystatin 2018-06 Yes [place]uc[place] Apply U nivers (MYCOSTATIN 0-08 us topically ity of ) 100,000 00:00: candidiasis to [place] units/g 00 affected MD powder area(s) 3 Anderso (three) n times a Cancer day. Left Center breast skin fold nystatin 2018-06 Yes [place]uc[place] Apply U nivers (MYCOSTATIN 0-08 us topically ity of ) 100,000 00:00: candidiasis to [place] units/g 00 affected MD powder area(s) 3 Anderso (three) n times a Cancer day. Left Center breast skin fold nystatin 2018-06 Yes [place]uc[place] Apply U nivers (MYCOSTATIN 0-08 us topically ity of ) 100,000 00:00: candidiasis to [place] units/g 00 affected MD powder area(s) 3 Anderso (three) n times a Cancer day. Left Center breast skin fold nystatin 2018-06 Yes [place]uc[place] Apply U nivers (MYCOSTATIN 0-08 us topically ity of ) 100,000 00:00: candidiasis to [place] units/g 00 affected MD powder area(s) 3 Anderso (three) n times a Cancer day. Left Center breast skin fold nystatin 2018-06 Yes [place]uc[place] Apply U nivers (MYCOSTATIN 0-08 us topically ity of ) 100,000 00:00: candidiasis to [place] units/g 00 affected MD powder area(s) 3 Anderso (three) n times a Cancer day. Left Center breast skin fold cloNIDine Yes TAKE 1 Univer s HCl 9-10 TABLET BY ity of (CATAPRES) 00:00: MOUTH ONCE [place] 0.1 mg 00 DAILY MD tablet [facility]o n [facility] cloNIDine Yes TAKE 1 Univer s HCl 9-10 TABLET BY ity of (CATAPRES) 00:00: MOUTH ONCE [place] 0.1 mg 00 DAILY MD tablet Anderso n [facility] cloNIDine 2019-0 Yes TAKE 1 Univer s HCl 9-10 TABLET BY ity of (CATAPRES) 00:00: MOUTH ONCE [place] 0.1 mg 00 DAILY MD tablet [facility] cloNIDine 2018-0 Yes TAKE 1 Univer s HCl 9-10 TABLET BY ity of (CATAPRES) 00:00: MOUTH ONCE [place] 0.1 mg 00 DAILY MD tablet [facility] cloNIDine 2018- Yes TAKE 1 Univer s HCl 9-10 TABLET BY ity of (CATAPRES) 00:00: MOUTH ONCE [place] 0.1 mg 00 DAILY MD tablet [facility] montelukast 2019-0 Yes = 1 tab, Me moria 10 mg oral 7-24 PO, QPM, l tablet 14:52: FOR [place] 36 ALLERGIES. , # 90 tab, 1 Refill(s), Pharmacy: [facility] 48 Clonidine 2019-0 Yes 0.1 mg = 1 Me moria Hydrochlori 7-24 tab, PO, l de 0.1 MG 14:52: Daily, # Herm gunnar Oral Tablet 34 90 tab, 1 Refill(s), Pharmacy: [facility], pt will refill later carvedilol 2019-0 Yes See Memoria 6.25 mg 7-24 Instructio l oral tablet 14:52: ns, TAKE He rmann 32 ONE TABLET BY MOUTH TWICE DAILY, # 180 tab, 1 Refill(s), Pharmacy: [facility] 482, pt will refill later carvedilol 2019-0 Yes See Memoria 6.25 mg 2-11 Instructio l oral tablet 17:43: ns, TAKE He rmann 15 ONE TABLET BY MOUTH TWICE DAILY, # 180 tab, 1 Refill(s), Pharmacy: [facility] 482, pt will refill later Clonidine 2019-0 Yes 0.1 mg = 1 Me moria Hydrochlori 2-11 tab, PO, l de 0.1 MG 17:43: Daily, # Herm gunanr Oral Tablet 10 90 tab, 1 Refill(s), Pharmacy: [facility], pt will refill later montelukast 2019-0 Yes = 1 tab, Me moria 10 mg oral 2-11 PO, QPM, l tablet 17:42: FOR [place]adim 59 ALLERGIES. , # 90 tab, 1 Refill(s), Pharmacy: [facility] pravastatin Yes 40 mg = 1 M emoria 40 mg oral 2-11 tab, PO, l tablet 17:42: Bedtime, # Maribeth nn 49 90 tab, 1 Refill(s), Pharmacy: [facility] pravastatin Yes See Memori a 40 mg oral 6-25 Instructio l tablet 18:24: ns, TAKE [place] 28 TWO TABLETS BY MOUTH ONCE DAILY AT BEDTIME, # 180 tab, 1 Refill(s), Pharmacy: [facility] omeprazole Yes 20 mg = 1 Me moria 20 mg oral 6-25 cap, PO, l delayed 18:24: Daily, # Conner n release 25 90 cap, 1 capsule Refill(s), Pharmacy: [facility] montelukast Yes 10 mg = 1 M emoria 10 mg oral 6-25 tab, PO, l tablet 18:24: QPM, for [place] 21 Allergies, # 90 tab, 1 Refill(s), Pharmacy: [facility] Clonidine Yes 0.1 mg = 1 Me moria Hydrochlori 6-25 tab, PO, l de 0.1 MG 18:24: Daily, # Herm gunnar Oral Tablet 14 90 tab, 1 Refill(s), Pharmacy: [facility], pt will refill later carvedilol Yes See Memoria 6.25 mg 6-25 Instructio l oral tablet 18:24: ns, TAKE He rmann 03 ONE TABLET BY MOUTH TWICE DAILY, # 180 tab, 1 Refill(s), Pharmacy: [facility], pt will refill later Diclofenac Yes 4 gm = 1 Mem oria Sodium 0.01 6-25 appl, TOP, l MG/MG 18:21: BID, PRN [place] Topical Gel 00 Apply to [Voltaren] affected area, # 4 ea, 2 Refill(s), Pharmacy: [facility] benzonatate No 200 mg = 1 Memoria 200 MG Oral 3-26 cap, PO, l Capsule 18:09: TID, X 10 Maribeth nn [Tessalon] 00 day, # 30 cap, 0 Refill(s), Pharmacy: [facility] 200 ACTUAT Yes 2 puff, John denise Albuterol 3-26 INHALER, l 0.09 18:09: Q4H, PRN [place] MG/ACTUAT 00 wheezing, Metered coughing, Dose or Inhaler shortness [Proventil] of breath, # 1 ea, 1 Refill(s), Pharmacy: [facility] Amoxicillin No 875 mg = 1 Memoria 875 MG / 3-26 tab, PO, l Clavulanate 18:09: BID, X 10 H ermann 125 MG Oral 00 day, # 20 Tablet tab, 0 [Augmentin Refill(s), 875-mg] Pharmacy: [facility] omeprazole Yes 20 mg = 1 Me moria 20 mg oral 1-25 cap, PO, l delayed 17:29: Daily, # Conner n release 40 90 cap, 1 capsule Refill(s), Pharmacy: [facility] montelukast Yes 10 mg = 1 M emoria 10 mg oral 1-25 tab, PO, l tablet 17:29: QPM, for [place] 37 Allergies, # 90 tab, 1 Refill(s), Pharmacy: [facility] pravastatin Yes See Memori a 40 mg oral 1-25 Instructio l tablet 17:26: ns, TAKE [place] 32 TWO TABLETS BY MOUTH ONCE DAILY AT BEDTIME, # 180 tab, 1 Refill(s), Pharmacy: [facility] Clonidine Yes 0.1 mg = 1 Me moria Hydrochlori 1-25 tab, PO, l de 0.1 MG 17:26: Daily, # Herm gunnar Oral Tablet 19 90 tab, 1 Refill(s), Pharmacy: [facility], pt will refill later carvedilol Yes See Memoria 6.25 mg 1-25 Instructio l oral tablet 17:26: ns, TAKE He rmann 15 ONE TABLET BY MOUTH TWICE DAILY, # 180 tab, 1 Refill(s), Pharmacy: [facility], pt will refill later Furosemide Yes See Memoria 20 MG Oral 1-25 Instructio l Tablet 17:26: ns, 1 tab Conner n 00 PO three times a week, # 12 tab, 3 Refill(s), Pharmacy: [facility] 48 furosemide Yes 20mg Take 20 mg U nivers (LASIX) 20 1-25 by mouth ity o f mg tablet 00:00: every [place] [address] morning. [facility] furosemide Yes 20mg Take 20 mg U nivers (LASIX) 20 1-25 by mouth ity o f mg tablet 00:00: every [place] [address] morning. [facility] furosemide Yes 20mg Take 20 mg U nivers (LASIX) 20 1-25 by mouth ity o f mg tablet 00:00: every [place] [address] morning. [facility] furosemide Yes 20mg Take 20 mg U nivers (LASIX) 20 1-25 by mouth ity o f mg tablet 00:00: every [place] [address] morning. [facility] furosemide Yes 20mg Take 20 mg U nivers (LASIX) 20 1-25 by mouth ity o f mg tablet 00:00: every [place] [address] morning. [facility] Cephalexin No 500 mg = 1 M emoria 500 MG Oral 1-19 cap, PO, l Capsule 16:04: Q12H, 0 Vadim [Keflex] 00 Refill(s) Cephalexin No 500 mg = 1 M emoria 500 MG Oral 1-18 cap, PO, l Capsule 22:14: Q12H, [place] [Keflex] 00 begin taking the day before your scope procedure, X 3 day, # 6 cap, 0 Refill(s), Pharmacy: [facility] Furosemide Yes See Memoria 20 MG Oral 1-03 Instructio l Tablet 19:29: ns, 2 tab Conner n [Lasix] 00 PO Daily x 2 days, then 1 tab po daily, # 30 tab, 0 Refill(s), Pharmacy: [facility] Sodium 2016-06 No 250 mL, Memoria Chloride 2-20 Rate: l 0.9% 22:36: Titrate, Vadim (titrate) 00 Dosing 250 mL Weight 58.636, kg, Route: IV, Total Volume: 250, Priority: STAT, Start Date: 06/07/17 16:36:00 FINANCE ANALYST, Duration: 30 day, Stop date: 07/07/17 16:35:00 FINANCE ANALYST, Replace Every: 24 hr Protonix 2016-06 No Notes: Memoria 2-20 Tablet l 22:30: should not [place] 00 be chewed or crushed. (Same as: Protonix) Lovenox 2016-06 No Notes: Memoria 2-20 (Same as: l 15:00: Lovenox) Vadim 00 Omeprazole 2016-06 No 20 mg, Memor ia 2-20 Route: PO, l 15:00: Drug form: Vadim DRC, Daily, Dosing Weight 58.636, kg, Start date: 06/07/17 9:00:00 FINANCE ANALYST, Duration: 30 day, Stop date: 07/06/17 9:00:00 FINANCE ANALYST venlafaxine 2016-06 No Notes: Do M emoria 2-20 not open, l 15:00: crush, or Vadim 00 chew. (Same As: Effexor XR) carvedilol 2016-06 No Route: PO, M emoria 2-20 Drug form: l 15:00: TAB, Vadim 00 Daily, Dosing Weight 58.636, kg, Start date: 06/07/17 9:00:00 FINANCE ANALYST, Duration: 30 day, Stop date: 07/06/17 9:00:00 FINANCE ANALYST Tamoxifen 2016-06 No Notes: Memori a 2-20 WASTE: F/P l 15:00: - Black; E [place] 00 - Yellow CHEMOTHERA PY neostigmine 2016-06 No Route: IV, Memoria (ANES) 2-20 Drug form: l 04:04: INJ, ONCE, Stop date: 06/06/17 22:04:00 FINANCE ANALYST ondansetron 2016-06 No Route: IV, Memoria (ANES) 2-20 Drug form: l 04:04: INJ, ONCE, Stop date: 06/06/17 22:04:00 FINANCE ANALYST Enoxaparin 2016-06 No 40 mg, Memor ia 2-20 Route: l 04:00: SUB-Q, Drug form: INJ, [id number], Dosing Weight 58.636, kg, Start date: 06/06/17 22:00:00 FINANCE ANALYST, Duration: 30 day, Stop date: 07/05/17 22:00:00 FINANCE ANALYST Pyridium 2016-06 No Notes: Memoria 2-20 Give with l 03:52: meals. Vadim 00 (Same as: Pyridium) Morphine 2016-06 No Notes: Memoria 2-20 (Same l 03:48: as:MORPhin Vadim 00 e Sulfate) tramadol 2016-06 No Notes: Not Mem oria hydrochlori 2-20 to exceed l de 50 MG 03:48: 400mg/day. Her collier Oral Tablet 00 (Same As: Ultram) Phenergan 2016-06 No Notes: Memori a 2-20 (Same as: l 03:48: Phenergan) Vadim 00 Calcium 2016-06 No 1,000 mL, Memor ia Chloride 2-20 Rate: 125 l 0.0014 03:48: ml/hr, [place] MEQ/ML / 00 Infuse Potassium over: 8 Chloride hr, Route: 0.004 IV, Dosing MEQ/ML / Weight Sodium 58.636 kg, Chloride Total 0.103 Volume: MEQ/ML / 1,000, Sodium Start Lactate date: 0.028 06/06/17 MEQ/ML 21:48:00 Injectable FINANCE ANALYST, Solution Duration: 30 day, Stop date: 07/06/17 21:47:00 FINANCE ANALYST, 1.62, m2 Zofran 2016-06 No Notes: Memoria 2-20 (Same as: l 03:48: Zofran) [place] 00 MEDICATION WASTE Product Size: 4 mg Product Wasted: ___ mg Acetaminoph 2016-06 No Notes: John denise en 325 MG / 2-20 (Same as: l Hydrocodone 03:48: [place] Maribeth nn Bitartrate 00 325/5) Do 5 MG Oral not exceed Tablet 4gm/day of [[place] acetaminop 5/325] hen. ketOROLAC 2016-06 No 4 days Memor ia 15 mg/mL 2-20 l injectable 03:48: MEDICATION H ermann solution 00 WASTE Product Size: 30 mg Product Wasted: 15mg Insulin 2016-06 No Notes: Memoria Lispro 2-20 Roll in l 03:38: palms of [place] 00 hands gently; Do not shake `vigorousl y. (Same as: Humalog ) "Single Patient Use Only " WASTE: F/P - Black; E - Municipal Trash Bin Stable for 28 days at room temperatur e. Expires in days from ____Date Fentanyl 2016-06 No Notes: Memoria 2-20 (Same as: l 03:38: Sublimaze) Preservati ve free. Flumazenil 2016-06 No Notes: Memor ia 2-20 (Same as: l 03:38: Romazicon) Naloxone 2016-06 No Notes: Memoria 2-20 Same as l 03:38: Narcan Ketorolac 2016-06 No 4 days Memor ia 2-20 l 03:38: MEDICATION WASTE Product Size: 30 mg Product Wasted: ___ mg Acetaminoph 2016-06 No Notes: John denise en 2-20 Infuse l 03:38: over 15 minutes Do not exceed 4gm/day of acetaminop hen MEDICATION WASTE Product Size: 1000 mg Product Wasted: ___ mg Meperidine 2016-06 No Notes: Memor ia 2-20 (Same as: l 03:38: Demerol) "Use Precaution in Elderly, Seizure disorders, and Renal impairment " Ondansetron 2016-06 No Notes: John denise 2-20 (Same as: l 03:38: Zofran) MEDICATION WASTE Product Size: 4 mg Product Wasted: ___ mg Dexamethaso 2016-06 No Notes: John denise ne 2-20 Concentrat l 03:38: ion: 4mg/ml Morphine 2016-06 No Notes: Memoria 2-20 (Same l 03:38: as:MORPhin e Sulfate) Labetalol 2016-06 No 10 mg, 2 John denise 2-20 mL, Route: l 03:38: IVP, Drug form: INJ, Q5Min, Dosing Weight 58.636, kg, PRN Elevated BP, Start date: 06/06/17 21:38:00 FINANCE ANALYST, Duration: 5 doses or times, Stop date: Limited # of times Hydralazine 2016-06 No Notes: John denise 2-20 (Same as: l 03:38: Apresoline ) Push over 5 minutes pravastatin 2016-06 No Notes: John denise 2-20 (Same as: l 03:00: Pravachol) Pravastatin 2016-06 No Route: PO, Memoria 2-20 Drug form: l 03:00: TAB, Bedtime, Dosing Weight 58.636, kg, Start date: 06/06/17 21:00:00 FINANCE ANALYST, Duration: 30 day, Stop date: 07/05/17 21:00:00 FINANCE ANALYST carvedilol 2016-06 No Notes: Memor ia 2-20 Give with l 03:00: food. (Same As: Coreg) acetaminoph 2016-06 No Route: IV, Memoria en (ANES) 2-20 Drug form: l 10 mg 01:15: INJ, Start date: 06/06/17 19:15:00 FINANCE ANALYST, Stop date: 06/06/17 20:15:00 FINANCE ANALYST glycopyrrol 2016-06 No Route: IV, Memoria ate (ANES) 2-20 Drug form: l 00:57: INJ, ONCE, Stop date: 06/06/17 18:57:00 FINANCE ANALYST fentaNYL 2016-06 No Route: IV, Mem oria (ANES) 2-20 Drug form: l 00:52: INJ, ONCE, Stop date: 06/06/17 18:52:00 FINANCE ANALYST dexamethaso 2016-06 No Route: IV, Memoria ne (ANES) 2-20 Drug form: l 00:52: INJ, ONCE, Stop date: 06/06/17 18:52:00 FINANCE ANALYST rocuronium 2016-06 No Route: IV, M emoria (ANES) 2-20 Drug form: l 00:52: INJ, ONCE, Stop date: 06/06/17 18:52:00 FINANCE ANALYST lidocaine 2016-06 No Route: IV, Me moria (ANES) 2-20 Drug form: l 00:52: INJ, ONCE, Stop date: 06/06/17 18:52:00 FINANCE ANALYST propofol 2016-06 No Route: IV, Mem oria (ANES) 2-20 Drug form: l 00:52: INJ, ONCE, Vadim 00 Stop date: 06/06/17 18:52:00 FINANCE ANALYST ceFAZolin 2016-06 No Route: IV, Me moria (ANES) 2-20 Drug form: l 00:47: INJ, ONCE, [place] 00 Stop date: 06/06/17 18:47:00 FINANCE ANALYST Lactated 2016-06 No Route: IV, Mem oria Ringers 2-20 Total l Injection 00:03: Volume: Maribeth nn IV (ANES) 00 1,000, 1000 mL Start date: 06/06/17 18:03:00 FINANCE ANALYST, Stop date: 06/06/17 19:03:00 FINANCE ANALYST montelukast 2016-06 No Notes: John denise 2-19 (Same l 23:00: as:Singula Vadim 00 ir) Clonidine 2016-06 No Notes: Memori a Hydrochlori 2-19 (Same As: l de 0.1 MG 23:00: Catapres) Her collier Oral Tablet 00 Zanaflex 2016-06 No Notes: Memoria 2-19 (Same As: l 22:18: Zanaflex) Vadim Insulin 2016-06 No Notes: Memoria Lispro 2-19 Roll in l 21:15: palms of hands gently; Do not shake `vigorousl y. (Same as: Humalog ) "Single Patient Use Only " WASTE: F/P - Black; E - Municipal Trash Bin Stable for 28 days at room temperatur e. Expires in days from ____Date Calcium 2016-06 No 1,000 mL, Memor ia Chloride 2-19 Rate: 25 l 0.0014 21:15: ml/hr, MEQ/ML / 00 Infuse Potassium over: 40 Chloride hr, Route: 0.004 IV, Dosing MEQ/ML / Weight Sodium 58.636 kg, Chloride Total 0.103 Volume: MEQ/ML / 1,000, Sodium Start Lactate date: 0.028 06/06/17 MEQ/ML 15:15:00 Injectable FINANCE ANALYST, Solution Duration: 30 day, Stop date: 07/06/17 15:14:00 FINANCE ANALYST, 1.62, m2 Sodium 2016-06 No 50 mL, Memoria Chloride 2-17 Rate: l 0.9% 250 ml 04:38: Titrate, He rmann (titrate) 00 Dosing 50 mL Weight 60.455, kg, Route: IV, Total Volume: 50, Start Date: 06/03/17 22:38:00 FINANCE ANALYST, Duration: 30 day, Stop date: 07/03/17 22:37:00 FINANCE ANALYST, Replace Every: 24 hr montelukast 2016-06 No Notes: John denise 2-16 (Same l 23:00: as:Singula [place] 00 ir) pantoprazol 2016-06 No Notes: John denise e 2-16 Tablet l 15:00: should not Vadim 00 be chewed or crushed. (Same as: Protonix) Aspirin 81 2016-06 No Notes: Memor ia MG Chewable 2-16 Take with l Tablet 15:00: food. Vadim 00 heparin 2016-06 No Notes: Memoria 2-16 porcine l 03:00: heparin Furosemide 2016-06 No Notes: Memor ia 2-16 (Same as: l 03:00: Lasix) Vadim Clonidine 2016-06 No Notes: Memori a Hydrochlori 2-15 (Same As: l de 0.1 MG 23:00: Catapres) Her collier Oral Tablet 00 Coreg 2016-06 No Notes: Memoria 2-15 Give with l 23:00: food. Vadim 00 (Same As: Coreg) albumin 2016-06 No Notes: Memoria human 25% 2-15 LOT#: l intravenous 20:58: Vadim solution 00 ___ Mfg: WASTE: F/P - Red; E -Red (Same as: Albuminar) "blood product derivative " Saline 2016-06 No Notes: Memoria Flush 0.9% 2-15 (Same as: l 20:55: BD Vadim 00 Posiflush) Albuterol 2016-06 No Notes: Memori a 0.833 MG/ML 2-15 (Same as: l / 20:55: Duoneb) [place] Ipratropium 00 Hudgins 0.167 MG/ML Inhalant Solution [DuoNeb] Nitroglycer 2016-06 No Notes: John denise in 2-15 (Same l 20:55: as:Nitroqu ick, Nitrostat) "Do Not Crush" Sublingual tablet Hydralazine 2016-06 No Notes: John denise 2-15 (Same as: l 20:55: Apresoline ) Push over 5 minutes Acetaminoph 2016-06 No Notes: Do M emoria en 2-15 not exceed l 20:55: 4 gm/day. [place] 00 (Same as: Tylenol) Acetaminoph 2016-06 No Notes: John denise en 325 MG / 2-15 (Same as: l Hydrocodone 20:55: [place] Maribeth nn Bitartrate 00 325/5) Do 5 MG Oral not exceed Tablet 4gm/day of acetaminop hen. Ondansetron 2016-06 No Notes: John denise 2-15 (Same as: l 20:55: Zofran) MEDICATION WASTE Product Size: 4 mg Product Wasted: ___ mg Saline 2016-06 No Notes: Memoria Flush 0.9% -15 (Same as: l 16:49: BD Posiflush) ciprofloxac 2016-06 Yes 250 mg = 1 Memoria in 250 mg 2-04 tab, PO, l oral tablet 21:13: Q12H, X 7 H day, # 14 tab, 0 Refill(s), Pharmacy: [facility] tramadol 2016-06 Yes 1 - 2 Memoria hydrochlori 2-04 tabs, PO, l de 50 MG 21:13: Q12H, PRN Herm gunnar Oral Tablet 00 Pain Score [Ultram] 4-6, take 1/2 to 1 tablet twice daily as needed for pain, # 60 tab, 0 Refill(s) tizanidine 2016-06 Yes 4 mg = 1 Mem oria 4 MG Oral 2-04 tab, PO, l Tablet 21:13: Bedtime, Vadim [Zanaflex] 00 PRN for muscle spasm, Take half to 1 tablet at bedtime, # 30 tab, 0 Refill(s), Pharmacy: [facility] 482 Carvedilol Carvedilol Yes UT 6.25 MG 6.25 MG Physici Oral Tablet Oral Tablet a ns cloNIDine cloNIDine Yes [place] HCl - 0.1 HCl - 0.1 Physi ci MG Oral MG Oral ans Tablet Tablet Montelukast Montelukast Yes U T Sodium 10 Sodium 10 Physi ci MG Oral MG Oral ans Tablet Tablet Omeprazole Omeprazole Yes UT 20 MG Oral 20 MG Oral Phy sici Tablet Tablet ans Delayed Delayed Release Release Pravastatin Pravastatin Yes U T Sodium 40 Sodium 40 Physi ci MG Oral MG Oral ans Tablet Tablet Tamoxifen Tamoxifen Yes UT Citrate 20 Citrate 20 Phy sici MG Oral MG Oral ans Tablet Tablet Venlafaxine Venlafaxine Yes U T HCl - 37.5 HCl - 37.5 Phy sici MG Oral MG Oral ans Tablet Tablet Immunizations Ordered Immunization Filled Immunization Date Status Commen ts Source Name Name influenza virus Unknown Completed [facility] vaccine, inactivated influenza virus Unknown Completed [facility] vaccine, inactivated [id number] Unknown Completed [facility] [id number] Unknown Completed [facility] [id number]<s up>4, 5</sup> [id number] Unknown Completed [facility] [id number]<s up>6, 7</sup> Hx influenza Unknown Completed [facility] vaccine-unspecified<s up>1</sup> Hx influenza Unknown Completed [facility] vaccine-unspecified<s up>8</sup> influenza virus Unknown Completed [facility] vaccine, inactivated<sup>4</nuñez p> pneumococcal Unknown Completed [facility] 23-valent vaccine influenza virus Unknown Completed [facility] vaccine, inactivated<sup>1</nuñez p> Hx influenza Unknown Completed [facility] vaccine-unspecified<s up>1</sup> Hx influenza Unknown Completed [facility] vaccine-unspecified<s up>4</sup> Hx influenza Unknown Completed [facility] vaccine-unspecified<s up>2</sup> Hx influenza Unknown Completed [facility] vaccine-unspecified<s up>9</sup> Hx pneumococcal Unknown Completed [facility] vaccine influenza virus Unknown Completed [facility] vaccine, inactivated<sup>3</nuñez p> influenza virus Unknown Completed [facility] vaccine, inactivated<sup>1</nuñez p> influenza virus Unknown Completed [facility] [place] vaccine, inactivated<sup>5</nuñez p> influenza virus Unknown Completed [facility] vaccine, inactivated<sup>2</nuñez p> influenza virus Unknown Completed [facility] vaccine, inactivated<sup>4</nuñez p> influenza virus Unknown Completed [facility] vaccine, inactivated<sup>2</nuñez p> influenza virus Unknown Completed [facility] vaccine, inactivated<sup>6</nuñez p> influenza virus Unknown Completed [facility] vaccine, inactivated<sup>3</nuñez p> Hx influenza Unknown Completed [facility] collier vaccine-unspecified<s up>2</sup> Hx influenza Unknown Completed [facility] Her collier vaccine-unspecified<s up>3</sup> Hx influenza Unknown Completed [facility] Her collier vaccine-unspecified<s up>5</sup> Hx influenza Unknown Completed [facility] Her collier vaccine-unspecified<s up>10</sup> Hx influenza Unknown Completed [facility] collier vaccine-unspecified<s up>1</sup> tetanus-diphtheria Unknown Completed Memori al Vadim toxoids<sup>5</sup> tetanus-diphtheria Unknown Completed Memori al [place] toxoids<sup>4</sup> tetanus-diphtheria Unknown Completed Memori al Vadim toxoids<sup>6</sup> tetanus-diphtheria Unknown Completed Memori al Vadim toxoids<sup>7</sup> tetanus-diphtheria Unknown Completed Memori al [place] toxoids<sup>11</sup> tetanus-diphtheria Unknown Completed Memori al Vadim toxoids<sup>2</sup> Vital Signs Vital Name Observation Time Observation Value Comments Source Heart Rate 2022-11-17 Mar Prieto n 15:24:00 Systolic (mm Hg) 2022-11-17 [facility] rmann 15:24:00 Diastolic (mm Hg) 2022-11-17 [facility] ermann 15:24:00 Height 2022-11-17 4 [ft_i] Mar Prieto n 15:24:00 Weight 2022-11-17 Mar Prieto n 15:24:00 BMI Calculated 2022-11-17 [facility] Kary gunnar 15:24:00 Temperature Oral 2022-10-03 98.4 F [facility] rmann (F) 19:26:00 Heart Rate 2022-10-03 [facility] Conner n 19:26:00 Systolic (mm Hg) 2022-10-03 [facility] 19:26:00 Diastolic (mm Hg) 2022-10-03 [facility] 19:26:00 Height 2022-10-03 4 [ft_i] [facility] n 19:26:00 Weight 2022-10-03 [facility] n 19:26:00 BMI Calculated 2022-10-03 [facility] gunnar 19:26:00 Temperature Oral 2022-06-01 98 F [facility] (F) 16:16:00 Heart Rate 2022-06-01 [facility] Conner n 16:16:00 Systolic (mm Hg) 2022-06-01 [facility] 16:16:00 Diastolic (mm Hg) 2022-06-01 [facility] ermann 16:16:00 Height 2022-06-01 4 [ft_i] [facility] n 16:16:00 Weight 2022-06-01 [facility] Con[facility] n 16:16:00 BMI Calculated 2022-06-01 [facility] gunnar 16:16:00 Temperature Oral 2022-04-15 98.0 F [facility] He rmann (F) 13:18:00 Heart Rate 2022-04-15 [facility] Conner n 13:18:00 Systolic (mm Hg) 2022-04-15 [facility] 13:18:00 Diastolic (mm Hg) 2022-04-15 [facility] ermann 13:18:00 Height 2022-04-15 4 [ft_i] [facility] Con[facility] n 13:18:00 Weight 2022-04-15 [facility] Con[facility] n 13:18:00 BMI Calculated 2022-04-15 [facility] gunnar 13:18:00 Temperature Oral 2022-04-13 98.1 F [facility] (F) 14:18:00 Heart Rate 2022-04-13 [facility] Conner n 14:18:00 Systolic (mm Hg) 2022-04-13 [facility] 14:18:00 Diastolic (mm Hg) 2022-04-13 [facility] ermann 14:18:00 Height 2022-04-13 4 [ft_i] [facility] Conner n 14:18:00 Weight 2022-04-13 [facility] Con[facility] n 14:18:00 BMI Calculated 2022-04-13 [facility] gunnar 14:18:00 Temperature Oral 2021-12-01 98.0 F [facility] (F) 15:14:00 Heart Rate 2021-12-01 [facility] Conner n 15:14:00 Systolic (mm Hg) 2021-12-01 [facility] rmann 15:14:00 Diastolic (mm Hg) 2021-12-01 [facility] ermann 15:14:00 Height 2021-12-01 147.32 cm [facility] Conner n 15:14:00 Weight 2021-12-01 [facility] Con[facility] n 15:14:00 BMI Calculated 2021-12-01 [facility] gunnar 15:14:00 Heart Rate 2021-07-07 [facility] Conner n 16:40:00 Systolic (mm Hg) 2021-07-07 [facility] 16:40:00 Diastolic (mm Hg) 2021-07-07 [facility] ermann 16:40:00 Height 2021-07-07 147.32 cm [facility] Conner n 16:40:00 Weight 2021-07-07 [facility] Conner n 16:40:00 BMI Calculated 2021-07-07 [facility] gunnar 16:40:00 Heart Rate 2021-06-03 [facility] Conner n 16:12:00 Systolic (mm Hg) 2021-06-03 [facility] 16:12:00 Diastolic (mm Hg) 2021-06-03 [facility] 16:12:00 Height 2021-06-03 147.32 cm [facility] Conner n 16:12:00 Weight 2021-06-03 [facility] Conner n 16:12:00 BMI Calculated 2021-06-03 [facility] gunnar 16:12:00 Systolic (mm Hg) 2020-06-23 [facility] 15:00:00 Diastolic (mm Hg) 2020-06-23 [facility] 15:00:00 Heart Rate 2020-06-23 [facility] Conner n 15:00:00 Height 2020-06-23 147.32 cm [facility] Conner n 15:00:00 Weight 2020-06-23 [facility] Con[facility] n 15:00:00 BMI Calculated 2020-06-23 [facility] gunnar 15:00:00 Temperature Oral 2019-12-25 98.1 F [facility] (F) 15:29:00 Height 2019-12-25 154.94 cm [facility] Conner n 15:29:00 Weight 2019-12-25 [facility] Con[facility] n 15:29:00 BMI Calculated 2019-12-25 [facility] gunnar 15:29:00 Systolic (mm Hg) 2019-12-25 [facility] 15:29:00 Diastolic (mm Hg) 2019-12-25 [facility] 15:29:00 Heart Rate 2019-12-25 [facility] Conner n 15:29:00 Systolic blood 2019-10-25 138 mm[Hg] Location: LUE; [facility] pressure 14:19:00 Position: Sitting Diastolic blood 2019-10-25 94 mm[Hg] Location: LUE; [facility] pressure 14:19:00 Position: Sitting Body height 2019-10-25 62 [in_us] [facility] 14:19:00 Weight 2019-10-25 130 [lb_av] [facility] 14:19:00 Body mass index 2019-10-25 23.78 kg/m2 [facility] (BMI) [Ratio] 14:19:00 Body temperature 2019-10-25 97 [degF] Method: [facility] 14:19:00 Temporal Systolic (mm Hg) 2019-07-03 [facility] 17:04:00 Diastolic (mm Hg) 2019-07-03 [facility] 17:04:00 Heart Rate 2019-07-03 [facility] Conner n 17:04:00 Height 2019-07-03 154.94 cm [facility] Conner n 17:04:00 Weight 2019-07-03 [facility] Con[facility] n 17:04:00 BMI Calculated 2019-07-03 [facility] gunnar 17:04:00 Systolic (mm Hg) 2019-07-03 [facility] 16:53:00 Diastolic (mm Hg) 2019-07-03 [facility] 16:53:00 Heart Rate 2019-07-03 [facility] Conner n 16:53:00 Temperature Oral 2019-07-03 98.1 F [facility] (F) 16:53:00 Height 2019-07-03 154.94 cm [facility] Conner n 16:53:00 Weight 2019-07-03 [facility] Con[facility] n 16:53:00 BMI Calculated 2019-07-03 [facility] gunnar 16:53:00 Height 2019-01-09 160.02 cm [facility] Conner n 14:18:00 Weight 2019-01-09 [facility] n 14:18:00 BMI Calculated 2019-01-09 [facility] gunnar 14:18:00 Systolic (mm Hg) 2019-01-09 [facility] Mandeep rmann 14:18:00 Diastolic (mm Hg) 2019-01-09 [facility] Attila ermann 14:18:00 Heart Rate 2019-01-09 Mar Prieto n 14:18:00 Temperature Oral 2019-01-09 98.0 F [facility] Mandeep rmann (F) 14:18:00 BP Systolic 2018-11-30 134 mm[Hg] Location: LUE; [facility] 09:38:00 Position: Sitting BP Diastolic 2018-11-30 72 mm[Hg] Location: [facility]; [facility] 09:38:00 Position: Sitting Height 2018-11-30 62 [in_us] [facility] 09:38:00 Weight 2018-11-30 130 [lb_av] [facility] 09:38:00 Body Mass Index 2018-11-30 23.78 kg/m2 [facility] Calculated 09:38:00 Temperature 2018-11-30 97.8 [degF] [facility] 09:38:00 Weight 2018-07-30 Mar Prieto n 17:03:00 BMI Calculated 2018-07-30 Mar Preston gunnar 17:03:00 Height 2018-07-30 160.02 cm Mar Prieto n 17:03:00 Heart Rate 2018-07-30 Mar Prieto n 17:03:00 Temperature Oral 2018-07-30 98.1 F [facility] Mandeep rmann (F) 17:03:00 Systolic (mm Hg) 2018-07-30 [facility] Mandeep rmann 17:03:00 Diastolic (mm Hg) 2018-07-30 [facility] Attila ermann 17:03:00 BP Systolic 2018-02-28 124 mm[Hg] Location: [facility]; [facility] 13:33:00 Position: Sitting BP Diastolic 2018-02-28 72 mm[Hg] Location: [facility]; [facility] 13:33:00 Position: Sitting Height 2018-02-28 62 [in_us] [facility] 13:33:00 Weight 2018-02-28 130 [lb_av] [facility] 13:33:00 Body Mass Index 2018-02-28 23.78 kg/m2 [facility] Calculated 13:33:00 Height 2017-12-11 152.4 cm Mar Prestonan n 18:08:00 Temperature Oral 2017-12-11 98.5 F [facility] Mandeep rmann (F) 18:08:00 Heart Rate 2017-12-11 [facility] 18:08:00 Systolic (mm Hg) 2017-12-11 [facility] 18:08:00 Diastolic (mm Hg) 2017-12-11 [facility] 18:08:00 BMI Calculated 2017-12-11 [facility]unnar 18:08:00 Weight 2017-12-11 [facility] Con[facility] n 18:08:00 BMI Calculated 2017-09-18 [facility] gunnar 18:29:00 Weight 2017-09-18 [facility] n 18:29:00 Temperature Oral 2017-09-18 98.0 F [facility] (F) 18:29:00 Height 2017-09-18 152.4 cm [facility] n 18:29:00 Heart Rate 2017-09-18 [facility] n 18:29:00 Systolic (mm Hg) 2017-09-18 [facility] 18:29:00 Diastolic (mm Hg) 2017-09-18 [facility] 18:29:00 Height 2017-09-11 152.4 cm [facility] n 17:47:00 Temperature Oral 2017-09-11 98.7 F [facility] (F) 17:47:00 Systolic (mm Hg) 2017-09-11 [facility] 17:47:00 Diastolic (mm Hg) 2017-09-11 [facility] 17:47:00 Heart Rate 2017-09-11 [facility] n 17:47:00 BMI Calculated 2017-09-11 [facility] gunnar 17:47:00 Weight 2017-09-11 [facility] n 17:47:00 BP Systolic 2017-09-04 140 mm[Hg] Location: [facility]; [facility] 13:53:00 Position: Sitting BP Diastolic 2017-09-04 92 mm[Hg] Location: [facility]; [facility] 13:53:00 Position: Sitting Height 2017-09-04 62 [in_us] [facility] 13:53:00 Weight 2017-09-04 130 [lb_av] [facility] 13:53:00 Body Mass Index 2017-09-04 23.78 kg/m2 [facility] Cal[facility] 13:53:00 Temperature 2017-09-04 98 [degF] [facility] 13:53:00 Weight 2017-08-23 [facility] 20:11:00 BMI Calculated 2017-08-23 [facility] 20:11:00 Height 2017-08-23 160.02 cm [facility] n 20:11:00 BP Systolic 2017-07-19 130 mm[Hg] Location: [facility]; [facility] 10:14:00 Position: Sitting BP Diastolic 2017-07-19 80 mm[Hg] Location: [facility]; [facility] 10:14:00 Position: Sitting Height 2017-07-19 62 [in_us] [facility] 10:14:00 Weight 2017-07-19 130 [lb_av] [facility] 10:14:00 Body Mass Index 2017-07-19 23.78 kg/m2 [facility] Cal[facility] 10:14:00 Temperature 2017-07-19 98 [degF] [facility] 10:14:00 Height 2017-07-13 152.4 cm [facility] 17:05:00 BMI Calculated 2017-07-13 [facility] 17:05:00 Weight 2017-07-13 [facility] n 17:05:00 Systolic (mm Hg) 2017-07-13 [facility] 17:05:00 Diastolic (mm Hg) 2017-07-13 [facility] 17:05:00 Temperature Oral 2017-07-13 98.2 F [facility] (F) 17:05:00 Heart Rate 2017-07-13 [facility] 17:05:00 BMI Calculated 2017-07-07 [facility] 15:43:00 Weight 2017-07-07 [facility] n 15:43:00 Height 2017-07-07 162.56 cm [facility] 15:43:00 Systolic (mm Hg) 2017-07-07 [facility] 15:43:00 Diastolic (mm Hg) 2017-07-07 [facility] 15:43:00 Heart Rate 2017-07-07 [facility] n 15:43:00 Temperature Oral 2017-07-07 98.1 F [facility] (F) 15:43:00 BP Systolic 2017-07-06 122 mm[Hg] Location: [facility]; [facility] 14:34:00 Position: Sitting BP Diastolic 2017-07-06 82 mm[Hg] Location: [place]; [facility] 14:34:00 Position: Sitting Height 2017-07-06 62 [in_us] [facility] 14:34:00 Weight 2017-07-06 130 [lb_av] [facility] 14:34:00 Body Mass Index 2017-07-06 23.78 kg/m2 [facility] Calculated 14:34:00 Temperature 2017-07-06 98.9 [degF] [facility] 14:34:00 Systolic (mm Hg) 2017-06-21 [facility] 19:31:00 Diastolic (mm Hg) 2017-06-21 [facility] 19:31:00 BMI Calculated 2017-06-21 [facility]ar 18:59:00 Weight 2017-06-21 [facility] n 18:59:00 Height 2017-06-21 152.4 cm [facility] 18:59:00 Temperature Oral 2017-06-21 98.3 F [facility] (F) 18:59:00 Heart Rate 2017-06-21 [facility] 18:59:00 Systolic (mm Hg) 2017-06-21 [facility] 18:59:00 Diastolic (mm Hg) 2017-06-21 [facility] 18:59:00 BP Systolic 2017-06-20 122 mm[Hg] Location: LUE; [facility] 10:50:00 Position: Sitting BP Diastolic 2017-06-20 80 mm[Hg] Location: LUE; [facility] 10:50:00 Position: Sitting Height 2017-06-20 62 [in_us] [facility] 10:50:00 Weight 2017-06-20 125 [lb_av] [facility] 10:50:00 Body Mass Index 2017-06-20 22.86 kg/m2 [facility] 10:50:00 Temperature 2017-06-20 98 [degF] [facility] 10:50:00 Respitory Rate 2017-06-08 [facility] 21:30:00 Systolic (mm Hg) 2017-06-08 [facility] 21:30:00 Diastolic (mm Hg) 2017-06-08 [facility] 21:30:00 Temperature Oral 2017-06-08 98.5 F [facility] (F) 21:30:00 Heart Rate 2017-06-08 [facility] 21:30:00 Heart Rate 2017-06-08 [facility] 16:53:00 Temperature Oral 2017-06-08 98.6 F [facility] (F) 16:53:00 Respitory Rate 2017-06-08 [facility] 16:53:00 Systolic (mm Hg) 2017-06-08 [facility] 16:53:00 Diastolic (mm Hg) 2017-06-08 [facility] 16:53:00 Respitory Rate 2017-06-08 [facility] 13:30:00 Systolic (mm Hg) 2017-06-08 [facility] 13:30:00 Diastolic (mm Hg) 2017-06-08 [facility] 13:30:00 Heart Rate 2017-06-08 [facility] 13:30:00 Temperature Oral 2017-06-08 98.2 F [facility] (F) 13:30:00 Weight 2017-06-07 [facility] 05:00:00 BMI Calculated 2017-06-07 [facility] 05:00:00 Height 2017-06-07 154.94 cm [facility] 05:00:00 Weight 2017-06-05 [facility] 23:30:00 Height 2017-06-05 157.48 cm [facility] 23:30:00 BMI Calculated 2017-06-05 [facility] 23:30:00 Respitory Rate 2017-06-04 [facility] 22:22:00 Temperature Oral 2017-06-04 99.5 F [facility] (F) 22:22:00 Heart Rate 2017-06-04 [facility] 22:22:00 Systolic (mm Hg) 2017-06-04 [facility] 22:22:00 Diastolic (mm Hg) 2017-06-04 [facility] 22:22:00 Heart Rate 2017-06-04 [facility] 17:53:00 Temperature Oral 2017-06-04 98.5 F [facility] (F) 17:53:00 Systolic (mm Hg) 2017-06-04 [facility] 17:53:00 Diastolic (mm Hg) 2017-06-04 [facility] 17:53:00 Respitory Rate 2017-06-04 [facility] 17:53:00 Systolic (mm Hg) 2017-06-04 [facility] 13:18:00 Diastolic (mm Hg) 2017-06-04 [facility] 13:18:00 Respitory Rate 2017-06-04 [facility] 13:18:00 Heart Rate 2017-06-04 [facility] 13:18:00 Temperature Oral 2017-06-04 97.7 F [facility] (F) 13:18:00 Weight 2017-06-04 [facility] 12:41:00 BMI Calculated 2017-06-02 [facility] 22:40:00 Weight 2017-06-02 [facility] 22:40:00 Height 2017-06-02 157.48 cm [facility] 22:40:00 Weight 2017-06-02 [facility] 16:22:00 Height 2017-06-02 160.02 cm [facility] 16:22:00 BMI Calculated 2017-06-02 [facility] 16:22:00 BMI Calculated 2017-05-22 [facility] 17:01:00 Temperature Oral 2017-05-22 98.2 F [facility] (F) 17:01:00 Heart Rate 2017-05-22 [facility] 17:01:00 Systolic (mm Hg) 2017-05-22 [facility] 17:01:00 Diastolic (mm Hg) 2017-05-22 [facility] 17:01:00 Weight 2017-05-22 [facility] 17:01:00 Height 2017-05-22 152.4 cm [facility] 17:01:00 Procedures Procedure Date / Time Performing Clinician Source Performed Cataract surgery 2019-04-19 05:00:00 [facility] rmann Mammogram<sup>1</sup> 2018-02-26 05:00:00 Felton Martinez Cystourethroscopy, with 2017-07-07 16:32:00 John Fierro removal of foreign body, calculus, or ureteral stent from urethra or bladder (separate procedure); simple [QLH] CULTURE, URINE, 2017-06-20 00:00:00 [facility] Mastectomy<sup>2</sup> 2015-03-20 05:00:00 Robert Fierro Stereotactically guided 2014-12-25 05:00:00 John yenny Fierro core needle biopsy of breast<sup>3</sup> Knee arthroplasty 2010-06-19 06:00:00 [facility] Procedure<sup>4</sup> [facility]placement Left [facility] bilateral [facility] of [facility] Plan of Care Planned Activity Planned Date Details Comments Source Future Scheduled 2023-01-13 COVID-19 Vaccination [facility] Test 01:04:53 (#1) [code = COVID-19 [facility] (#1)] Center Future Scheduled 2022-04-16 COVID-19 Vaccination [facility] Test 06:45:24 (#1) [code = COVID-19 [facility] (#1)] Center Future Scheduled 2022-04-16 COVID-19 Vaccination [facility] Test 06:45:24 (#1) [code = COVID-19 [facility] (#1)] Center Future Scheduled 2022-04-16 COVID-19 Vaccination [facility] Test 06:45:24 (#1) [code = COVID-19 [facility] (#1)] Center Future Scheduled 2022-01-28 COVID-19 Vaccination [facility] Test 04:02:16 (#1) [code = COVID-19 [facility] (#1)] Center Encounters Start End Encounter Admission Attending Care Care Encounter Source Date/Time Date/Time Type Type Clinicians Facility Department ID 2020-04-01 Outpatient SYSTEM, [facility] [id number] 10:06:24 PROVIDER Artie maxwell 2023-05-25 2023-05-25 Outpatient MHIE IE [id number] Memoria 10:30:00 10:30:00 46 l Vadim 2023-05-18 2023-05-18 Outpatient MHIE IE [id number] Memoria 07:15:00 07:15:00 47 l Vadim 2022-11-17 2022-11-18 Outpatient IE [facility] [id number] Memoria 15:30:00 04:59:59 Medicine 43 l Pauly Prieto n 2022-11-17 2022-11-17 Outpatient Connolly, MG [facility] [id number] 10:30:00 23:59:59 Erlinda Maxwell 43 2022-11-17 2022-11-17 Outpatient MHIE MHIE [id number] Memoria 10:30:00 10:30:00 43 l Vadim 2022-11-15 2022-11-16 Between IE [facility] Family [id number] Memoria 00:21:20 00:21:20 Visit Medicine 44 caesar Coats Conner maxwell 2022-11-14 2022-11-15 Outpatient MHMG MHMG [id number] 19:21:20 19:21:20 44 2022-11-10 2022-11-10 Outpatient MHIE MHIE [id number] Memoria 10:00:00 10:00:00 44 caesar Fierro 2022-10-03 2022-10-04 Outpatient MHIE [facility] Family [id number] Memoria 19:30:00 04:59:59 Medicine 45 caesar KeyesCoats Conner maxwell 2022-10-03 2022-10-03 Outpatient Connolly, MHMG MHMG [id number] 14:30:00 23:59:59 Erlinda Maxwell 45 2022-10-03 2022-10-03 Outpatient MHIE MHIE [id number] Memoria 14:30:00 14:30:00 45 caesar Fierro 2022-08-02 2022-08-04 Phone MHIE [facility] Family [id number] Memoria 22:13:03 05:59:59 Message Medicine 16 caesar KeyesCoats Conner maxwell 2022-08-02 2022-08-03 Outpatient MHMG MHMG [id number] 16:13:03 23:59:59 16 2022-08-01 2022-08-03 Phone MHIE [facility] Family [id number] Memoria 16:14:19 05:59:59 Message Medicine 15 caesar KeyesCoats Conner maxwell 2022-08-01 2022-08-02 Outpatient MHMG MHMG [id number] 10:14:19 23:59:59 15 2022-06-02 2022-06-03 Between MHIE [facility] Family [id number] Memoria 03:47:18 03:47:18 Visit Medicine 41 caesar maxwell 2022-06-01 2022-06-02 Outpatient MHMG MHMG [id number] 21:47:18 21:47:18 41 2022-06-01 2022-06-02 Outpatient MHIE [facility] Family [id number] Memoria 16:15:00 05:59:59 Medicine 39 caesar maxwell 2022-06-01 2022-06-01 Outpatient Connolly, MHMG MHMG [id number] 10:15:00 23:59:59 Erlinda N 39 2022-06-01 2022-06-01 Outpatient MHIE MHIE [id number] Memoria 10:15:00 10:15:00 39 caesar Vadim 2022-05-29 2022-05-30 Between MHIE [facility] Family [id number] Memoria 16:30:37 16:30:37 Visit Medicine 40 l Pauly Conner maxwell 2022-05-29 2022-05-30 Outpatient MHMG MG [id number] 10:30:37 10:30:37 40 2022-05-25 2022-05-25 Outpatient MHIE MHIE [id number] Memoria 08:00:00 08:00:00 40 caesar Vadim 2022-05-17 2022-05-18 Between MHIE [facility] Family [id number] Memoria 00:29:38 00:29:38 Visit Medicine 39 l Coats Conner maxwell 2022-05-16 2022-05-17 Outpatient MHMG MG [id number] 18:29:38 18:29:38 39 2022-05-13 2022-05-14 Outpt Diag MHIE [facility] [id number] Memoria 16:52:00 05:59:00 Services Outpatient 09 l Indy Fierro Pearson 2022-05-13 2022-05-13 Outpatient Connolly, MH29 29 [id number] 10:52:00 23:59:00 Erlinda N 09 2022-04-15 2022-04-16 Outpatient nullFlavo [facility] Family 4 [id number] Memoria 13:15:00 04:59:59 r Medicine 42 l Pauly Prieto n 2022-04-15 2022-04-15 Outpatient Connolly, MHMG MG [id number] 08:15:00 23:59:59 Erlinda N 42 2022-04-15 2022-04-15 Outpatient MHIE MHIE [id number] Memoria 08:15:00 08:15:00 42 caesar Fierro 2022-04-13 2022-04-14 Outpatient nullFlavo [facility] Family 4 [id number] Memoria 14:15:00 04:59:59 r Medicine 41 l Pauly maxwell 2022-04-13 2022-04-13 Outpatient Connolly, MHMG MG [id number] 09:15:00 23:59:59 Erlinda N 41 2022-04-13 2022-04-13 Outpatient MHIE MHIE [id number] Memoria 09:15:00 09:15:00 41 caesar Fierro 2022-01-17 2022-01-19 Phone nullFlavo [facility] Family 4022 [id number] Memoria 20:03:09 04:59:59 Message r Medicine 14 caesar maxwell 2022-01-17 2022-01-18 Outpatient MHMG MHMG [id number] 15:03:09 23:59:59 14 2021-12-01 2021-12-02 Outpatient nullFlavo [facility] Family 4 [id number] Memoria 15:30:00 04:59:59 r Medicine 37 caesar maxwell 2021-12-01 2021-12-01 Outpatient Connolly, MHMG MHMG [id number] 10:30:00 23:59:59 Erlinda N 37 2021-12-01 2021-12-01 Outpatient MHIE MHIE [id number] Memoria 10:30:00 10:30:00 37 caesar Fierro 2021-11-24 2021-11-24 Outpatient MHIE MHIE [id number] Memoria 09:15:00 09:15:00 38 caesar Fierro 2021-07-27 2021-07-29 Phone nullFlavo [facility] Family 4022 [id number] Memoria 22:17:03 05:59:59 Message r Medicine 13 caesar maxwell 2021-07-27 2021-07-28 Outpatient MHMG MHMG [id number] 16:17:03 23:59:59 13 2021-07-07 2021-07-08 Outpatient nullFlavo [facility] Family 4 [id number] Memoria 16:30:00 05:59:59 r Medicine 36 caesar maxwell 2021-07-07 2021-07-07 Outpatient Connolly, MHMG MHMG [id number] 10:30:00 23:59:59 Erlinda N 36 2021-07-07 2021-07-07 Outpatient MHIE MHIE [id number] Memoria 10:30:00 10:30:00 36 caesar Fierro 2021-06-10 2021-06-12 Phone nullFlavo [facility] Family 4022 [id number] Memoria 20:30:36 05:59:59 Message r Medicine 12 caesar Prieto n 2021-06-10 2021-06-11 Outpatient MHMG MHMG [id number] 14:30:36 23:59:59 12 2021-06-06 2021-06-07 Between nullFlavo MG Family 4022 [id number] Memoria 00:18:28 00:18:28 Visit r Medicine 35 caesar Prieto n 2021-06-05 2021-06-06 Outpatient MHMG MG [id number] 18:18:28 18:18:28 35 2021-06-03 2021-06-04 Outpatient nullFlavo [facility] Family 4 [id number] Memoria 16:30:00 05:59:59 r Medicine 35 caesar Prieto alissa 2021-06-03 2021-06-03 Outpatient Connolly, MHMG MG [id number] 10:30:00 23:59:59 Erlinda Maxwell 35 2021-06-03 2021-06-03 Outpatient MHIE [facility] [id number] Memoria 10:30:00 10:30:00 35 caesar Fierro 2021-05-18 2021-05-19 Between nullFlavo [facility] Family [id number] [id number] Memoria 14:45:32 14:45:32 Visit r Medicine 34 caesar Prieto alissa 2021-05-18 2021-05-19 Between nullFlavo [facility] Family [id number] Memoria 14:44:57 14:44:57 Visit r Medicine 33 l Coats Conner n 2021-05-18 2021-05-19 Outpatient MHMG MG [id number] 08:45:32 08:45:32 34 2021-05-18 2021-05-19 Outpatient MHMG MHMG [id number] 08:44:57 08:44:57 33 2021-05-10 2021-05-11 Outpt Diag nullFlavo [facility] [id number] Memoria 14:27:00 05:59:00 Services r Outpatient [address] 2021-05-10 2021-05-10 Outpatient Connolly, [address] [place] [id number] 08:27:00 23:59:00 Erlinda N 08 2020-12-03 2020-12-03 Outpatient MHIE MHIE [id number] Memoria 10:45:00 10:45:00 34 caesar Vadim 2020-06-23 2020-06-24 Outpatient nullFlavo [facility] Family 4 [id number] Memoria 15:15:00 05:59:59 r Medicine 33 l Pauly maxwell 2020-06-23 2020-06-23 Outpatient Mohsen, MHMG MG [id number] 09:15:00 23:59:59 Erlinda N 33 2020-06-23 2020-06-23 Outpatient MHIE MHIE [id number] Memoria 09:15:00 09:15:00 33 caesar Vadim 2020-06-20 2020-06-22 Phone nullFlavo [facility] Family [id number] Memoria 20:28:11 05:59:59 Message r Medicine 11 l Pauly maxwell 2020-06-20 2020-06-21 Outpatient MHMG MG [id number] 14:28:11 23:59:59 11 2020-04-01 2020-04-01 Outpatient GAYLE IRIZARRY MDA MDA [id number] 11:54:20 11:54:20 BRENDA maxwell 2020-03-27 2020-03-27 Outpatient GAYLE COLLINS MDA MDA [id number] 10:07:38 10:07:38 SPIKE maxwell 2020-03-25 2020-03-27 Phone nullFlavo [facility] Family [id number] Memoria 13:41:09 04:59:59 Message r Medicine 10 l Pauly maxwell 2020-03-25 2020-03-27 Phone nullFlavo MG Family 4022 [id number] Memoria 13:39:39 04:59:59 Message r Medicine 09 l Pauly maxwell 2020-03-25 2020-03-26 Outpatient MHMG MHMG [id number] 08:41:09 23:59:59 2020-03-25 2020-03-26 Outpatient MHMG MHMG [id number] 08:39:39 23:59:59 09 2020-03-24 2020-03-25 Outpt Diag nullFlavo [facility] [id number] Memoria 15:50:00 04:59:00 Services r Outpatient 07 l Indy Fierro Pearson 2020-03-24 2020-03-24 Outpatient Lynette Chang MH29 MH29 [id number] 10:50:00 23:59:00 Ureña 07 2019-12-27 2019-12-28 Between nullFlavo [facility] Family [id number] Memoria 21:24:50 21:24:50 Visit r Medicine 28 l Pauly maxwell 2019-12-27 2019-12-28 Outpatient MHMG MHMG [id number] 16:24:50 16:24:50 28 2019-12-25 2019-12-26 Outpatient nullFlavo [facility] Family 4 [id number] Memoria 15:30:00 04:59:59 r Medicine 32 l Pauly maxwell 2019-12-25 2019-12-25 Outpatient Connolly, MHMG MHMG [id number] 10:30:00 23:59:59 Erlinda N 32 2019-12-25 2019-12-25 Outpatient MHIE MHIE [id number] Memoria 10:30:00 10:30:00 32 caesar Fierro 2019-10-25 2019-10-25 [facility] Urogynecolo 6 [id number] [place] 14:10:00 14:10:00 t; ALMA LUO [facility] 2019-07-07 2019-07-08 Between nullFlavo MG Family [id number] [id number] Memoria 22:33:10 22:33:10 Visit r Medicine 27 caesar maxwell 2019-07-07 2019-07-08 Outpatient MHMG MHMG [id number] 16:33:10 16:33:10 27 2019-07-03 2019-07-04 Outpatient nullFlavo [facility] Family 4 [id number] Memoria 17:00:00 05:59:59 r Medicine 31 caesar maxwell 2019-07-03 2019-07-03 Outpatient Connolly, MHMG MHMG [id number] 11:00:00 23:59:59 Erlinda N 31 2019-07-03 2019-07-03 Outpatient MHIE MHIE [id number] Memoria 11:00:00 11:00:00 31 caesar Fierro 2019-05-30 2019-06-01 Phone nullFlavo [facility] Family 4022 [id number] Memoria 17:36:56 05:59:59 Message r Medicine 08 caesar Prieto n 2019-05-30 2019-05-31 Outpatient MHMG MG [id number] 11:36:56 23:59:59 08 2019-05-23 2019-05-25 Phone nullFlavo MG Family [id number] [id number] Memoria 22:32:54 05:59:59 Message r Medicine 07 caesar Prieto n 2019-05-23 2019-05-24 Outpatient MHMG MG [id number] 16:32:54 23:59:59 07 2019-03-13 2019-03-14 Outpt Diag nullFlavo [facility] [id number] Memoria 14:05:00 04:59:00 Services r Outpatient 06 l Indy Prestonann Pearson 2019-03-13 2019-03-13 Outpatient Lynette Chang [id number] 09:05:00 23:59:00 Ureña 06 2019-01-10 2019-01-11 Between nullFlavo MG Family [id number] Memoria 17:56:12 17:56:12 Visit r Medicine 23 caesar Prieto n 2019-01-10 2019-01-11 Outpatient MG MG [id number] 12:56:12 12:56:12 23 2019-01-09 2019-01-10 Outpatient nullFlavo MG Family 4 [id number] Memoria 14:30:00 04:59:59 r Medicine 30 l Pauly Prieto n 2019-01-09 2019-01-09 Outpatient Connolly, MG MG [id number] 09:30:00 23:59:59 Erlinda N 30 2019-01-09 2019-01-09 Outpatient MHIE IE [id number] Memoria 09:30:00 09:30:00 30 l Vadim 2018-11-30 2018-11-30 RAMONITA Estrada Urogynecocar 5 [id number] [place] 09:50:00 09:50:00 t; ALMA LUO [facility] Shayla DAVILA ans ALMA LUO 2018-09-24 2018-09-24 Ambulatory nullFlavo [facility] Family 4 [id number] Memoria 18:00:00 18:00:00 Pre-Reg r Medicine 29 l Pauly Prieto n 2018-09-24 2018-09-24 Outpatient MHIE MHIE [id number] Memoria 13:00:00 13:00:00 29 caesar Fierro 2018-09-24 2018-09-24 Outpatient Connolly, MHMG MG [id number] 13:00:00 13:00:00 Erlinda N 29 2018-08-10 2018-08-11 Between nullFlavo [facility] Family [id number] Memoria 04:25:36 04:25:36 Visit r Medicine 21 l Pauly Prieto n 2018-08-09 2018-08-10 Outpatient MHMG MHMG [id number] 22:25:36 22:25:36 2018-07-30 2018-07-31 Outpatient nullFlavo [facility] Family 4 [id number] Memoria 17:15:00 05:59:59 r Medicine 28 l Pauly Prieto alissa 2018-07-30 2018-07-30 Outpatient Connolly, MHMG MG [id number] 11:15:00 23:59:59 Erlinda N 28 2018-07-30 2018-07-30 Outpatient MHIE MHIE [id number] Memoria 11:15:00 11:15:00 28 [place] 2018-03-06 2018-03-06 Outpatient [facility] [id number] [place] 08:55:00 23:59:00 [facility] 2018-02-28 2018-02-28 RAMONITA Olmedo UroGynecocar 45 [id number] [place] 13:20:00 13:20:00 t; Anthony MIDDLETON Toña Santos M.D. 2018-02-26 2018-02-27 Outpt Diag nullFlavo [facility] [id number] Memoria 14:44:00 04:59:00 Services r Outpatient 05 l Indy Fierro Pearson 2018-02-26 2018-02-26 Outpatient Hu Changet 29 MH29 [id number] 09:44:00 23:59:00 [place] [id number] 2018-01-03 2018-01-03 RAMONITA Olmedo UroGynecocar 40 [id number] [place] 11:50:00 11:50:00 t; Anthony MIDDLETON [facility] Dominique RAMSEY [facility] david MIDDLETON M.D. 2017-12-11 2017-12-12 Outpatient nullFlavo [facility] Family 4 [id number] Memoria 18:00:00 04:59:59 r Medicine 25 caesar Coats Conner maxwell 2017-12-11 2017-12-11 Outpatient Mohsen, MHMG MG [id number] 13:00:00 23:59:59 Erlinda Maxwell 25 2017-12-11 2017-12-11 Outpatient MHIE MHIE [id number] Memoria 13:00:00 13:00:00 25 caesar Vadim 2017-09-18 2017-09-19 Outpatient nullFlavo [facility] Family 4 [id number] Memoria 18:45:00 04:59:59 r Medicine 27 l Coats Conner maxwell 2017-09-18 2017-09-18 Outpatient Katie MG MG [id number] 13:45:00 23:59:59 Swathi 27 2017-09-18 2017-09-18 Outpatient MHIE MHIE [id number] Memoria 13:45:00 13:45:00 27 caesar Fierro 2017-09-11 2017-09-12 Outpatient nullFlavo [facility] Family 4 [id number] Memoria 17:45:00 04:59:59 r Medicine 26 l Coats Conner maxwell 2017-09-11 2017-09-11 Outpatient Katie MG MG [id number] 12:45:00 23:59:59 Swathi 26 2017-09-11 2017-09-11 Outpatient MHIE IE [id number] Memoria 12:45:00 12:45:00 26 caesar Fierro 2017-09-04 2017-09-04 RAMONITA Olmedo UroGynecolo 38 [id number] [place] 13:40:00 13:40:00 t; Anthony MIDDLETON [facility] Dominique RAMSEY [facility] Claresona MIDDLETON M.D. 2017-08-30 2017-08-30 RAMONITA Olmedo UTP [id number] [place] 11:00:00 11:00:00 t; Anthony MIDDLETON y david Hughes M.D. 2017-08-23 2017-08-24 Outpatient nullFlavo [facility] [id number] Memoria 20:15:00 05:59:59 r Urology 23 l Pearson Maribeth [facility] 2017-08-23 2017-08-23 Outpatient Katie [facility] [id number] 14:15:00 23:59:59 Swathi 23 2017-08-23 2017-08-23 Outpatient MHIE MHIE [id number] Memoria 14:15:00 14:15:00 23 l Vadim 2017-08-16 2017-08-17 Outpt Diag nullFlavo [facility] [id number] Memoria 14:58:00 05:59:00 Services r Outpatient 04 l Imaging Vadim [place] 2017-08-16 2017-08-16 Outpatient VikkiDAVE dong 29 [id number] 08:58:00 23:59:00 Tobin 04 Jasmeet 2017-07-19 2017-07-19 RAMONITA Estrada UroGynecolo 3 [id number] [place] 10:10:00 10:10:00 t; DAVID LUO [facility] DAVID LUO 2017-07-13 2017-07-14 Outpatient nullFlavo [facility] Family 4 [id number] Memoria 17:00:00 05:59:59 r Medicine 24 l Coats Conner n 2017-07-13 2017-07-13 Outpatient Mohsen [facility] [id number] 11:00:00 23:59:59 Erlinda N 24 2017-07-13 2017-07-13 Outpatient ADELAIE IE [id number] Memoria 11:00:00 11:00:00 24 l [place] 2017-07-07 2017-07-08 Outpatient nullFlavo [facility] [id number] Memoria 16:00:00 05:59:59 r Urology 22 l Pearson Herma [facility] 2017-07-07 2017-07-07 Outpatient Raffaele [facility] [id number] 10:00:00 23:59:59 Tobin Jim [place] 2017-07-07 2017-07-07 Outpatient MHIE IE [id number] Memoria 10:00:00 10:00:00 22 l Vadim 2017-07-06 2017-07-06 RAMONITA Olmedo UTP [id number] [place] 14:30:00 14:30:00 t; Anthony MIDDLETON ans NINA, M.D. 2017-07-05 2017-07-05 Ambulatory nullFlavo [facility] Family 4 [id number] Memoria 17:15:00 17:15:00 Pre-Reg r Medicine 21 l Pauly Prieto n 2017-07-05 2017-07-05 Outpatient MHIE MHIE [id number] Memoria 11:15:00 11:15:00 21 l [place] 2017-07-05 2017-07-05 Outpatient Mohsen, MG MG [id number] 11:15:00 11:15:00 Erlinda N 21 2017-06-21 2017-06-22 Outpatient nullFlavo [facility] Family 4 [id number] Memoria 18:45:00 05:59:59 r Medicine 20 l Pauly Prieto n 2017-06-21 2017-06-21 Outpatient Katie, MG MG [id number] 12:45:00 23:59:59 Swathi 20 2017-06-21 2017-06-21 Outpatient MHIE MHIE [id number] Memoria 12:45:00 12:45:00 20 l Vadim 2017-06-20 2017-06-20 RAMONITA Estrada UroGynecolo 3 [id number] [place] 10:30:00 10:30:00 t; DAVID LUO [facility] DAVID LUO 2017-06-06 2017-06-08 Bedded nullFlavo [facility] [id number] Memoria 20:16:01 23:17:00 Outpatient r Vadim 15 l Pearson Maribeth nn 2017-06-06 2017-06-08 [place] [id number] 14:16:01 17:17:00 Joyce Cueva 2017-06-06 2017-06-06 Ambulatory nullFlavo [facility] Family 4 [id number] Memoria 16:15:00 16:15:00 Pre-Reg r Medicine 18 l aPuly Prestonan n 2017-06-06 2017-06-06 RAMONITA Olmedo UTP [id number] UT 16:15:00 16:15:00 t; Anthony MIDDLETON ans NINA, M.D. 2017-06-06 2017-06-06 Outpatient MHIE MHIE [id number] Memoria 10:15:00 10:15:00 18 caesar Fierro 2017-06-06 2017-06-06 Outpatient Connolly, MHMG MHMG [id number] 10:15:00 10:15:00 Erlinda N 18 2017-06-02 2017-06-05 Observatio nullFlavo [facility] [id number] Memoria 16:16:00 01:20:00 n humberto Fierro [address] Maribeth nn 2017-06-02 2017-06-04 Outpatient Joe, MHSL MHSL [id number] 10:16:00 19:20:00 Raul 06 2017-06-02 2017-06-02 Outpatient MHIE MHIE [id number] Memoria 09:45:00 09:45:00 19 caesar Fierro 2017-05-22 2017-05-23 Outpatient nullFlavo [facility] Family 4 [id number] Memoria 17:45:00 05:59:59 r Medicine 17 l Coats Conner n 2017-05-22 2017-05-23 Outpatient nullFlavo [facility] Family 4 [id number] Memoria 17:15:00 05:59:59 r Medicine 16 l Pauly Prieto n 2017-05-22 2017-05-22 Outpatient VISIT, MHMG MHMG [id number] 11:45:00 23:59:59 NURSE STRB 17 LLUVIA 2017-05-22 2017-05-22 Outpatient Connolly, MHMG MHMG [id number] 11:15:00 23:59:59 Erlinda N 16 2017-05-22 2017-05-22 Outpatient MHIE MHIE [id number] Memoria 11:45:00 11:45:00 17 caesar Fierro 2017-05-22 2017-05-22 Outpatient MHIE MHIE [id number] Memoria 11:15:00 11:15:00 16 caesar Fierro 2017-04-25 2017-04-25 Outpatient MHIE MHIE [id number] Memoria 13:30:00 13:30:00 15 caesar Fierro 2017-04-25 2017-04-25 Outpatient MHIE MHIE [id number] Memoria 13:00:00 13:00:00 14 caesar Vadim 2017-04-25 2017-04-25 Outpatient MHIE MHIE [id number] Memoria 11:30:00 11:30:00 13 caesar Vadim 2017-01-24 2017-01-24 Outpatient MHIE MHIE [id number] Memoria 09:00:00 09:00:00 10 caesar Vadim 2017-01-24 2017-01-24 Outpatient MHIE MHIE [id number] Memoria 09:00:00 09:00:00 12 caesar Vadim 2016-12-22 2016-12-22 Outpatient MHIE MHIE [id number] [facility] 14:30:00 14:30:00 11 caesar Vadim 2016-09-22 2016-09-22 Outpatient MHIE MHIE [id number] [facility] 10:00:00 10:00:00 09 caesar Vadim 2016-03-16 2016-03-16 Outpatient MHIE MHIE [id number] [facility]oria 11:00:00 11:00:00 08 caesar Vadim 2016-01-19 2016-01-20 Outpt Diag nullFlavo [facility] [id number] Memoria 15:00:00 04:59:00 Services r Outpatient [address] 2016-01-19 2016-01-19 Outpatient Mohsen Boni 29 [id number] 10:00:00 23:59:00 Jorge 2015-09-21 2015-09-21 Outpatient MHIE MHIE [id number] [facility]oria 10:30:00 10:30:00 07 caesar Fierro 2015-07-16 2015-07-16 Outpatient MHIE MHIE [id number] [facility] 15:15:00 15:15:00 05 caesar Fierro 2015-07-16 2015-07-16 Outpatient MHIE MHIE [id number] [facility] 15:15:00 15:15:00 06 caesar Fierro 2015-03-02 2015-03-02 Outpatient MHIE MHIE [id number] [facility] 11:00:00 11:00:00 03 caesar Fierro 2015-03-02 2015-03-02 Outpatient MHIE MHIE [id number] [facility] 10:00:00 10:00:00 04 caesar Fierro 2015-02-27 2015-02-27 Outpatient MHIE MHIE [id number] [facility] 13:30:00 13:30:00 02 caesar Fierro 2015-02-20 2015-02-20 Outpatient IE IE [id number] [facility]oria 15:00:00 15:00:00 01 caesar Fierro 2015-01-23 2015-01-23 Outpatient IE [facility] [id number] Memoria 10:00:00 10:00:00 00 caesar Fierro 2015-01-20 2015-01-21 Outpt Diag nullFlavo [facility] [id number] Memoria 14:37:00 04:59:00 Services r Outpatient 01 l Imaging [place]im [place] 2015-01-20 2015-01-20 Outpatient Connolly, [id number] 09:37:00 23:59:00 Erlinda N 01 2015-01-08 2015-01-09 Outpt Diag nullFlavo [facility] [id number] Memoria 17:42:00 04:59:00 Services r Outpatient 00 l Imaging Vadim [place] 2015-01-08 2015-01-08 Outpatient Connolly, 29 [facility] [id number] 12:42:00 23:59:00 Erlinda N 00 Results Test Description Test Time Test Comments Results Result Comments Source LIPIDS 2021-06-03 16:49:00 Test Item Value Reference Range Interpretation Comme nts Chol (test code = Chol) [facility] 16:49:00 Test Item Value Reference Range Interpretation Comments HDL (test code = HDL) 78 [facility] HospitalTuihraoIPPJIA6556-62-54 16:49:00 Test Item Value Reference Range Interpretation Comments Trig (test code = Trig) 119 [facility] HospitalKteuiotISSWUK5049-53-42 16:49:00 Test Item Value Reference Range Interpretation Comments LDL (Calculated) (test code = LDL 81 (Calculated)) [facility]DhhgwypDUZUHQ0030-59-55 16:49:00 Test Item Value Reference Range Interpretation Comments CHD Risk (test code = CHD Risk) 2.3 [facility] HospitalHesnlmoFKKORM3942-41-43 16:49:00 Test Item Value Reference Range Interpretation Comments Non HDL Chol (test code = Non HDL Chol) 103 [facility] HospitalHvtmbnzCSVSRC6864-83-66 16:07:00 Test Item Value Reference Range Interpretation Comments Chol (test code = Chol) 155 [facility] HospitalQccvoeeRAIBIO4929-20-25 16:07:00 Test Item Value Reference Range Interpretation Comments HDL (test code = HDL) 76 [facility] HospitalHscxqebVYWCFD2445-24-33 16:07:00 Test Item Value Reference Range Interpretation Comments Trig (test code = Trig) 92 [facility]mlwjqKYWPIZ2787-25-68 16:07:00 Test Item Value Reference Range Interpretation Comments LDL (Calculated) (test code = LDL 61 (Calculated)) [place] [id number] 16:07:00 Test Item Value Reference Range Interpretation Comments CHD Risk (test code = CHD Risk) 2.0 [facility] HospitalIijbmwlFLAXBL1254-05-88 16:07:00 Test Item Value Reference Range Interpretation Comments Non HDL Chol (test code = Non HDL Chol) 79 [facility] [id number] 16:03:00 Test Item Value Reference Range Interpretation Comments Glucose Lvl (test code = Glucose Lvl) 95 65-99 [facility] [id number] 16:03:00 Test Item Value Reference Range Interpretation Comments BUN (test code = BUN) 12 7-25 [facility] [id number] 16:03:00 Test Item Value Reference Range Interpretation Comments Creatinine Lvl (test code = Creatinine 1.67 0.60-0.88 Lvl) [facility] [id number] 16:03:00 Test Item Value Reference Range Interpretation Comments eGFR NON-AFR. MALIAN (test code = 28 eGFR NON-AFR. MALIAN) [facility] [id number] 16:03:00 Test Item Value Reference Range Interpretation Comments eGFR (test code = eGFR 32 ) [facility] [id number] 16:03:00 Test Item Value Reference Range Interpretation Comments B/C Ratio (test code = B/C Ratio) 7 6-22 [facility] [id number] 16:03:00 Test Item Value Reference Range Interpretation Comments Sodium Lvl (test code = Sodium Lvl) 132 135-146 [facility] [id number] 16:03:00 Test Item Value Reference Range Interpretation Comments Potassium Lvl (test code = Potassium 4.6 3.5-5.3 Lvl) [facility] [id number] 16:03:00 Test Item Value Reference Range Interpretation Comments Chloride Lvl (test code = Chloride Lvl) 98 98-110 [facility]2020-07-08 16:03:00 Test Item Value Reference Range Interpretation Comments CO2 (test code = CO2) 26 20-32 [facility]2020-07-08 16:03:00 Test Item Value Reference Range Interpretation Comments Calcium Lvl (test code = Calcium Lvl) 9.5 8.6-10.4 [facility]2020-07-08 16:03:00 Test Item Value Reference Range Interpretation Comments Total Protein (test code = Total 6.7 6.1-8.1 Protein) [facility]2020-07-08 16:03:00 Test Item Value Reference Range Interpretation Comments Albumin Lvl (test code = Albumin Lvl) 4.0 3.6-5.1 [facility]2020-07-08 16:03:00 Test Item Value Reference Range Interpretation Comments Globulin (test code = Globulin) 2.7 1.9-3.7 [facility]2020-07-08 16:03:00 Test Item Value Reference Range Interpretation Comments A/G Ratio (test code = A/G Ratio) 1.5 1.0-2.5 [facility]2020-07-08 16:03:00 Test Item Value Reference Range Interpretation Comments Bili Total (test code = Bili Total) 0.9 0.2-1.2 [facility]2020-07-08 16:03:00 Test Item Value Reference Range Interpretation Comments Alk Phos (test code = Alk Phos) 52 37-153 [facility]2020-07-08 16:03:00 Test Item Value Reference Range Interpretation Comments ASPARTATE TRANSAMINASE (test code = 12 10-35 ASPARTATE TRANSAMINASE) [facility]2020-07-08 16:03:00 Test Item Value Reference Range Interpretation Comments ALANINE AMINOTRANSFERASE (test code = 9 6-29 ALANINE AMINOTRANSFERASE) [facility]QxqxovdAQJDLB2597-50-13 16:03:00 Test Item Value Reference Range Interpretation Comments Chol (test code = Chol) 169 [place] [id number] 16:03:00 Test Item Value Reference Range Interpretation Comments HDL (test code = HDL) 89 [facility] HospitalOxcsavuWDTKSA8068-44-34 16:03:00 Test Item Value Reference Range Interpretation Comments Trig (test code = Trig) 82 [facility] HospitalVchthghODKEGH8326-07-81 16:03:00 Test Item Value Reference Range Interpretation Comments LDL (Calculated) (test code = LDL 64 (Calculated)) [facility] HospitalZpxzzgyRRMHWH8632-62-24 16:03:00 Test Item Value Reference Range Interpretation Comments CHD Risk (test code = CHD Risk) 1.9 [facility] HospitalOoqyvueBQQUZL5359-61-30 16:03:00 Test Item Value Reference Range Interpretation Comments Non HDL Chol (test code = Non HDL Chol) [address] [facility] [id number] 16:03:00 Test Item Value Reference Range Interpretation Comments Hgb A1C (test code = Hgb A1C) 5.1 [facility] ([facility])2018-03-06 09:52:08RENAL ULTRASOUNDLocation Code: [id number] HISTORY: N18.4: CHRONIC KIDNEY DISEASE, STAGE 4 (SEVERE)COM PARISON: None.COMMENT: Vanessa scale and selective color Doppler sonographic imaging of thekidneys was performed.The kidneys are of increased echogenicity with no focal mass, calcification, orhydronephrosis. There is mild cortical atrophy bilaterally.The right kidney measures 9.4 x 4.5 x 3.7 cm. The leftkidney measures 8.1 x4.3 x 4.2 cm. The bladder is unremarkable. Bilateral ureteral jets are identified.IMPRESSION: Echogenic and atrophic kidneys consistent with chronic kidney disease. There isno appreciable mass or evidence of obstructive uropathy.Tobacco Use [id number] 16:30:00 Test Item Value Reference Range Interpretation Comments Completed (test code = Completed) DONE [facility]] CULTURE, URINE, [id number] 15:21:01 Test Item Value Reference Range Interpretation Comments FINAL REPORT (test code = FINAL No Growth REPORT) [facility][O] Urine Dipstick (In Office)2017-06-20 14:22:00 Test Item Value Reference Range Interpretation Comments LEUKOCYTES (test code = LEUKOCYTES) 1+ A NITRITE; Normal (test code = 60946-9) neg N UROBILINOGEN; Normal (test code = 0.2 N 54348-5) PROTEIN; Abnormal (test code = 32839-3) 30 mg A pH (test code = pH) 7.0 N URINE BLOOD; Abnormal (test code = 1+ A 92337-6) SPECIFIC GRAVITY; Normal (test code = 1.010 N 2965-2) KETONES; Normal (test code = 54926-9) neg N BILIRUBIN; Normal (test code = 46748-4) neg N GLUCOSE; Normal (test code = 1547-9) neg N [facility] [id number] 17:26:00 Test Item Value Reference Range Interpretation Comments ABO/Rh (test code = ABO/Rh) A POS [facility] [id number] 17:26:00 Test Item Value Reference Range Interpretation Comments Antibody Scrn (test Positive 1(06/07/17 code = Antibody Scrn) 11:26 AM) [facility] [id number] 17:26:00 Test Item Value Reference Range Interpretation Comments AB Int (test code = AB Int) Anti-K [facility] [id number] 15:19:00 Test Item Value Reference Range Interpretation Comments RBC product (test code Product available = RBC product) (06/07/17 9:19 AM) [facility] [id number] 11:50:00 Test Item Value Reference Range Interpretation Comments eGFR (test code = eGFR) 27 [facility] [employer] [id number] 11:50:00 Test Item Value Reference Range Interpretation Comments Potassium Lvl (test code = Potassium 3.9 3.5-5.1 Lvl) [facility] [id number] 11:50:00 Test Item Value Reference Range Interpretation Comments Creatinine Lvl (test code = Creatinine 1.76 0.50-1.40 Lvl) [facility] [id number] 11:50:00 Test Item Value Reference Range Interpretation Comments Sodium Lvl (test code = Sodium Lvl) 137 135-145 [facility] [employer] [id number] 11:50:00 Test Item Value Reference Range Interpretation Comments Calcium Lvl (test code = Calcium Lvl) 8.0 8.5-10.5 [facility] [employer] [id number] 11:50:00 Test Item Value Reference Range Interpretation Comments CO2 (test code = CO2) 23 24-32 [facility] [id number] 11:50:00 Test Item Value Reference Range Interpretation Comments Chloride Lvl (test code = Chloride Lvl) 103 95-109 [facility] [id number] 11:50:00 Test Item Value Reference Range Interpretation Comments BUN (test code = BUN) 16 7-22 [facility] [id number] 11:50:00 Test Item Value Reference Range Interpretation Comments Glucose Lvl (test code = Glucose Lvl) 111 70-99 [facility] [id number] 11:50:00 Test Item Value Reference Range Interpretation Comments AGAP (test code = AGAP) 14.9 10.0-20.0 [facility]ysesuISRJDAKAXL7446-97-37 11:50:00 Test Item Value Reference Range Interpretation Comments Hct (test code = Hct) 23.8 36.0-48.0 [facility]manSusafnsXDRIGKQWWX7968-11-69 11:50:00 Test Item Value Reference Range Interpretation Comments Hgb (test code = Hgb) 7.7 12.0-16.0 [facility] Fluoroscopy assist to 1 hour [id number] 19:12:00No report is required for this exam.Technical component complete.--Electronically Signed by: Jasmeet Garland 06/07/1709:54FINAL REPORTUT [facility]icians [id number] 12:56:00 Test Item Value Reference Range Interpretation Comments Hct (test code = Hct) 27.0 36.0-48.0 [facility]m[id number] 12:56:00 Test Item Value Reference Range Interpretation Comments Hgb (test code = Hgb) 8.9 12.0-16.0 [facility] [id number] 19:31:00 Test Item Value Reference Range Interpretation Comments Eluate Int (test code = Eluate Int) See Note [facility] [employer] [id number] 19:31:00 Test Item Value Reference Range Interpretation Comments TOMI Gel Int (test Positive (06/03/17 1:31 code = TOMI Gel Int) PM) [facility] [employer] [id number] 19:31:00 Test Item Value Reference Range Interpretation Comments C3 Int (test code = Negative (06/03/17 1:31 C3 Int) PM) [facility] [employer] [id number] 19:31:00 Test Item Value Reference Range Interpretation Comments AB Int (test code = AB Int) Anti-K [facility] [employer] [id number] 18:30:00 Test Item Value Reference Range Interpretation Comments RBC product (test code Product available = RBC product) 2(06/03/17 12:30 PM) [facility] [employer] BANK [id number] 18:06:00 Test Item Value Reference Range Interpretation Comments Antibody Scrn (test Positive 1(06/03/17 code = Antibody Scrn) 12:06 PM) [facility] [employer] BANK [id number] 18:06:00 Test Item Value Reference Range Interpretation Comments ABO/Rh (test code = ABO/Rh) A POS [facility] ZoyozwqFBYIGFLQVU8796-72-64 16:46:00 Test Item Value Reference Range Interpretation Comments Hct (test code = Hct) 22.3 36.0-48.0 [facility] TylerRwhladuKHSCIKWWTS9258-98-95 16:46:00 Test Item Value Reference Range Interpretation Comments Hgb (test code = Hgb) 7.2 12.0-16.0 [facility] [employer] [id number] 11:01:00 Test Item Value Reference Range Interpretation Comments eGFR (test code = eGFR) 24 [facility] [employer] [id number] 11:01:00 Test Item Value Reference Range Interpretation Comments Total Protein (test code = Total 6.1 6.4-8.4 Protein) [facility] [employer] [id number] 11:01:00 Test Item Value Reference Range Interpretation Comments Albumin Lvl (test code = Albumin Lvl) 2.3 3.5-5.0 [facility] [employer] [id number] 11:01:00 Test Item Value Reference Range Interpretation Comments ALT (test code = ALT) 9 <=65 [facility] [employer] [id number] 11:01:00 Test Item Value Reference Range Interpretation Comments Calcium Lvl (test code = Calcium Lvl) 8.8 8.5-10.5 [facility] [employer] [id number] 11:01:00 Test Item Value Reference Range Interpretation Comments Chloride Lvl (test code = Chloride Lvl) 106 95-109 [facility] [employer] [id number] 11:01:00 Test Item Value Reference Range Interpretation Comments CO2 (test code = CO2) 24 24-32 [facility]2017-12-16 11:01:00 Test Item Value Reference Range Interpretation Comments Glucose Lvl (test code = Glucose Lvl) 87 70-99 [facility]2017-12-16 11:01:00 Test Item Value Reference Range Interpretation Comments BUN (test code = BUN) 15 7-22 [facility]2017-12-16 11:01:00 Test Item Value Reference Range Interpretation Comments Sodium Lvl (test code = Sodium Lvl) 142 135-145 [facility]2017-12-16 11:01:00 Test Item Value Reference Range Interpretation Comments Creatinine Lvl (test code = Creatinine 1.91 0.50-1.40 Lvl) [facility]2017-12-16 11:01:00 Test Item Value Reference Range Interpretation Comments Bili Total (test code = Bili Total) 0.4 0.2-1.3 [facility]2017-12-16 11:01:00 Test Item Value Reference Range Interpretation Comments Alk Phos (test code = Alk Phos) 100 39-136 [facility]2017-12-16 11:01:00 Test Item Value Reference Range Interpretation Comments AST (test code = AST) 10 <=37 [facility]2017-12-16 11:01:00 Test Item Value Reference Range Interpretation Comments Potassium Lvl (test code = Potassium 3.6 3.5-5.1 Lvl) [facility]2017-12-16 11:01:00 Test Item Value Reference Range Interpretation Comments B/C Ratio (test code = B/C Ratio) 8 6-25 [facility]2017-12-16 11:01:00 Test Item Value Reference Range Interpretation Comments Globulin (test code = Globulin) 3.8 2.7-4.2 [facility]2017-12-16 11:01:00 Test Item Value Reference Range Interpretation Comments A/G Ratio (test code = A/G Ratio) 0.6 0.7-1.6 [facility]2017-12-16 11:01:00 Test Item Value Reference Range Interpretation Comments AGAP (test code = AGAP) 15.6 10.0-20.0 [id number] 11:01:00 Test Item Value Reference Range Interpretation Comments Basophils (test code = Basophils) 0.8 <=1.0 [facility]manDdxbdxxIKCVEHAPVJ4379-49-29 11:01:00 Test Item Value Reference Range Interpretation Comments Segs-Bands # (test code = Segs-Bands #) 3.6 1.5-8.1 [facility]m[id number] 11:01:00 Test Item Value Reference Range Interpretation Comments Monocytes (test code = Monocytes) 11.3 2.0-12.0 [facility]manBhwquttYIUUDHLLBO8632-39-41 11:01:00 Test Item Value Reference Range Interpretation Comments Eosinophils (test code = Eosinophils) 1.5 <=4.0 [facility]manKspttbiIOVULOCQOT3659-36-19 11:01:00 Test Item Value Reference Range Interpretation Comments Lymphocytes # (test code = Lymphocytes 1.9 1.0-5.5 #) [facility]m[id number] 11:01:00 Test Item Value Reference Range Interpretation Comments Monocytes # (test code = Monocytes #) 0.7 <=0.8 [facility]manYeesqmyQQPKJKSQBL8733-38-87 11:01:00 Test Item Value Reference Range Interpretation Comments Lymphocytes (test code = Lymphocytes) 30.2 20.0-40.0 [facility]manSliqpncUPAULPRLRO7415-55-69 11:01:00 Test Item Value Reference Range Interpretation Comments Eosinophils # (test code = Eosinophils 0.1 <=0.5 #) [facility]manWhzpktrWYBOODMUEU8555-06-15 11:01:00 Test Item Value Reference Range Interpretation Comments Basophils # (test code = Basophils #) 0.1 <=0.2 [facility]manXuwlsxfNBCTRAIPTB0480-44-29 11:01:00 Test Item Value Reference Range Interpretation Comments Segs (test code = Segs) 56.2 45.0-75.0 [facility]manCfyqebpPFQJVWFPIH1402-97-42 11:01:00 Test Item Value Reference Range Interpretation Comments Hct (test code = Hct) 21.9 36.0-48.0 [facility]manTttmcinBORBXLRZXL3976-95-22 11:01:00 Test Item Value Reference Range Interpretation Comments MCV (test code = MCV) 90.9 80.0-98.0 [facility]manAowtpowVEUHHABHWV3842-20-32 11:01:00 Test Item Value Reference Range Interpretation Comments WBC (test code = WBC) 6.3 3.7-10.4 [facility] NocqhrePEQWCTJESR2946-18-63 11:01:00 Test Item Value Reference Range Interpretation Comments Hgb (test code = Hgb) 7.1 12.0-16.0 [facility] TgiitlpIQXVYURYHL9833-28-88 11:01:00 Test Item Value Reference Range Interpretation Comments RBC (test code = RBC) 2.40 4.20-5.40 [facility] PucqhiiOEOHXFRPAW8074-62-58 11:01:00 Test Item Value Reference Range Interpretation Comments RDW (test code = RDW) 15.5 11.5-14.5 [facility] ScrgnbuSWVNAUSQES3746-36-12 11:01:00 Test Item Value Reference Range Interpretation Comments MCHC (test code = MCHC) 32.3 32.0-36.0 [facility] OhclbssCURFRTZQDS9079-90-11 11:01:00 Test Item Value Reference Range Interpretation Comments MPV (test code = MPV) 7.3 7.4-10.4 [facility] TdurtjmNMAHDDCESA9872-43-48 11:01:00 Test Item Value Reference Range Interpretation Comments Platelet (test code = Platelet) 358 133-450 [facility] DcrqisqSWJPWYKCVO7290-82-65 11:01:00 Test Item Value Reference Range Interpretation Comments MCH (test code = MCH) 29.4 pg 27.0-31.0 [facility] NJCBAXQ2299-03-51 02:19:00 Test Item Value Reference Range Interpretation Comments Troponin-I (test code = Troponin-I) 0.04 <=0.40 [facility] [id number] 02:19:00 Test Item Value Reference Range Interpretation Comments Total CK (test code = Total CK) 37 -191 [facility] [id number] 22:16:00 Test Item Value Reference Range Interpretation Comments Troponin-I (test code = Troponin-I) no gt <=0.40 [facility] [id number] 22:16:00 Test Item Value Reference Range Interpretation Comments Total CK (test code = Total CK) 47 -191 [facility] [id number] 19:07:00 Test Item Value Reference Range Interpretation Comments UA Urobilinogen (test code = UA <=1.0 mg/dL 0.1-1.0 Urobilinogen) [facility] AND [id number] 19:07:00 Test Item Value Reference Range Interpretation Comments UA RBC (test code = UA RBC) no gt <=2 [facility] AND [id number] 19:07:00 Test Item Value Reference Range Interpretation Comments UA Mucus (test code = UA Mucus) Few /LPF [facility] AND [id number] 19:07:00 Test Item Value Reference Range Interpretation Comments UA Bacteria (test code = UA Occasional /HPF Bacteria) [facility] AND [id number] 19:07:00 Test Item Value Reference Range Interpretation Comments UA WBC (test code = UA WBC) 2 <=5 [facility] AND [id number] 19:07:00 Test Item Value Reference Range Interpretation Comments UA Sq Epi (test code = UA Sq Occasional /LPF Epi) [facility] AND [id number] 19:07:00 Test Item Value Reference Range Interpretation Comments UA Bili (test code = Negative *NA*(06/02/17 UA Bili) 1:07 PM) [facility] AND [id number] 19:07:00 Test Item Value Reference Range Interpretation Comments UA Blood (test code = Negative (06/02/17 1:07 UA Blood) PM) [facility] AND [id number] 19:07:00 Test Item Value Reference Range Interpretation Comments UA Ketones (test code = UA Negative mg/dL Ketones) [facility] AND [id number] 19:07:00 Test Item Value Reference Range Interpretation Comments UA Glucose (test code = UA Negative mg/dL Glucose) [facility] AND [id number] 19:07:00 Test Item Value Reference Range Interpretation Comments UA Leuk Est (test code Small *ABN*(06/02/17 = UA Leuk Est) 1:07 PM) [facility] AND [id number] 19:07:00 Test Item Value Reference Range Interpretation Comments UA Nitrite (test code Negative (06/02/17 1:07 = UA Nitrite) PM) [facility] AND [id number] 19:07:00 Test Item Value Reference Range Interpretation Comments UA Protein (test code = UA Negative mg/dL Protein) [facility] AND [id number] 19:07:00 Test Item Value Reference Range Interpretation Comments UA pH (test code = UA pH) 6.0 5.0-8.0 [facility] [id number] 19:07:00 Test Item Value Reference Range Interpretation Comments UA Color (test code = Light Yellow UA Color) *NA*(06/02/17 1:07 PM) [facility] [id number] 19:07:00 Test Item Value Reference Range Interpretation Comments UA Turbidity (test code = Clear (06/02/17 1:07 UA Turbidity) PM) [facility] [id number] 19:07:00 Test Item Value Reference Range Interpretation Comments UA Spec Grav (test code = UA Spec Grav) 1.004 [facility] GamePixannCARViddyadAC [id number] 17:08:00 Test Item Value Reference Range Interpretation Comments CK MB Index (test code = CK MB Index) 2.3 <=2.5 [facility] GamePixannCARViddyadAC [id number] 17:08:00 Test Item Value Reference Range Interpretation Comments Total CK (test code = Total CK) 47 12-191 [facility] GamePixannCARViddyadAC [id number] 17:08:00 Test Item Value Reference Range Interpretation Comments CK MB (test code = CK MB) 1.1 0.5-3.6 [facility] GamePixannCARViddyadAC [id number] 17:08:00 Test Item Value Reference Range Interpretation Comments Troponin-I (test code = Troponin-I) no gt <=0.40 [facility] GamePixannOnestop InternetAC [id number] 17:08:00 Test Item Value Reference Range Interpretation Comments BNP (test code = BNP) 658 [facility] [id number] 17:08:00 Test Item Value Reference Range Interpretation Comments eGFR (test code = eGFR) 22 [facility] [employer] [employer] [id number] 17:08:00 Test Item Value Reference Range Interpretation Comments Globulin (test code = Globulin) 4.5 2.7-4.2 [facility] [employer] [id number] 17:08:00 Test Item Value Reference Range Interpretation Comments A/G Ratio (test code = A/G Ratio) 0.6 0.7-1.6 [facility] GamePixannFORMERLY [id number] 17:08:00 Test Item Value Reference Range Interpretation Comments B/C Ratio (test code = B/C Ratio) 7 6-25 [facility]2017-12-15 17:08:00 Test Item Value Reference Range Interpretation Comments AGAP (test code = AGAP) 14.7 10.0-20.0 [facility]2017-12-15 17:08:00 Test Item Value Reference Range Interpretation Comments Bili Total (test code = Bili Total) 0.4 0.2-1.3 [facility]2017-12-15 17:08:00 Test Item Value Reference Range Interpretation Comments Alk Phos (test code = Alk Phos) 127 39-136 [facility]2017-12-15 17:08:00 Test Item Value Reference Range Interpretation Comments AST (test code = AST) 13 <=37 [facility]2017-12-15 17:08:00 Test Item Value Reference Range Interpretation Comments Albumin Lvl (test code = Albumin Lvl) 2.6 3.5-5.0 [facility]2017-12-15 17:08:00 Test Item Value Reference Range Interpretation Comments Total Protein (test code = Total 7.1 6.4-8.4 Protein) [facility]2017-12-15 17:08:00 Test Item Value Reference Range Interpretation Comments Calcium Lvl (test code = Calcium Lvl) 8.5 8.5-10.5 [facility]2017-12-15 17:08:00 Test Item Value Reference Range Interpretation Comments ALT (test code = ALT) 11 <=65 [facility]2017-12-15 17:08:00 Test Item Value Reference Range Interpretation Comments CO2 (test code = CO2) 23 24-32 [facility]2017-12-15 17:08:00 Test Item Value Reference Range Interpretation Comments Chloride Lvl (test code = Chloride Lvl) 102 95-109 [facility]2017-12-15 17:08:00 Test Item Value Reference Range Interpretation Comments Potassium Lvl (test code = Potassium 3.7 3.5-5.1 Lvl) [facility]2017-12-15 17:08:00 Test Item Value Reference Range Interpretation Comments Sodium Lvl (test code = Sodium Lvl) 136 135-145 [facility]2017-12-15 17:08:00 Test Item Value Reference Range Interpretation Comments Creatinine Lvl (test code = Creatinine 2.02 0.50-1.40 Lvl) [facility]2017-12-15 17:08:00 Test Item Value Reference Range Interpretation Comments BUN (test code = BUN) 15 7-22 [facility]2017-12-15 17:08:00 Test Item Value Reference Range Interpretation Comments Glucose Lvl (test code = Glucose Lvl) 110 70-99 [id number] 17:08:00 Test Item Value Reference Range Interpretation Comments Lymphocytes # (test code = Lymphocytes 1.5 1.0-5.5 #) [id number] 17:08:00 Test Item Value Reference Range Interpretation Comments Segs-Bands # (test code = Segs-Bands #) 7.5 1.5-8.1 [id number] 17:08:00 Test Item Value Reference Range Interpretation Comments Basophils (test code = Basophils) 0.6 <=1.0 [facility]PakwpswRFKOHKVJJF3504-14-01 17:08:00 Test Item Value Reference Range Interpretation Comments Basophils # (test code = Basophils #) 0.1 <=0.2 [id number] 17:08:00 Test Item Value Reference Range Interpretation Comments Monocytes # (test code = Monocytes #) 0.8 <=0.8 [id number] 17:08:00 Test Item Value Reference Range Interpretation Comments Eosinophils # (test code = Eosinophils 0.1 <=0.5 #) [facility]m[id number] 17:08:00 Test Item Value Reference Range Interpretation Comments Monocytes (test code = Monocytes) 7.7 2.0-12.0 [id number] 17:08:00 Test Item Value Reference Range Interpretation Comments Lymphocytes (test code = Lymphocytes) 14.8 20.0-40.0 [id number] 17:08:00 Test Item Value Reference Range Interpretation Comments Segs (test code = Segs) 75.9 45.0-75.0 [id number] 17:08:00 Test Item Value Reference Range Interpretation Comments Eosinophils (test code = Eosinophils) 1.0 <=4.0 [id number] 17:08:00 Test Item Value Reference Range Interpretation Comments PTT (test code = PTT) 40.5 s 22.9-35.8 [id number] 17:08:00 Test Item Value Reference Range Interpretation Comments PT (test code = PT) 15.2 s 12.0-14.7 [facility]manYolkumcWDTDZCALIX2318-25-16 17:08:00 Test Item Value Reference Range Interpretation Comments INR (test code = INR) 1.19 0.85-1.17 [id number] 17:08:00 Test Item Value Reference Range Interpretation Comments RDW (test code = RDW) 15.1 11.5-14.5 [facility]m[id number] 17:08:00 Test Item Value Reference Range Interpretation Comments Platelet (test code = Platelet) 434 133-450 [id number] 17:08:00 Test Item Value Reference Range Interpretation Comments MPV (test code = MPV) 7.3 7.4-10.4 [id number] 17:08:00 Test Item Value Reference Range Interpretation Comments MCH (test code = MCH) 30.1 pg 27.0-31.0 [id number] 17:08:00 Test Item Value Reference Range Interpretation Comments MCHC (test code = MCHC) 32.7 32.0-36.0 [id number] 17:08:00 Test Item Value Reference Range Interpretation Comments MCV (test code = MCV) 91.9 80.0-98.0 [id number] 17:08:00 Test Item Value Reference Range Interpretation Comments RBC (test code = RBC) 2.85 4.20-5.40 [id number] 17:08:00 Test Item Value Reference Range Interpretation Comments WBC (test code = WBC) 9.9 3.7-10.4 [facility]
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
[2023-03-09 09:50] LABS: Absolute Lymphocytes (CBC) 1.5 K/uL (0.7-4.9); Lymphocytes % 12.8 % (15.3-44.8); MCV 91.7 fL (80-100); MPV 9.2 fL (7.6-11.3); Platelets 163 thou/uL (152-406); RBC Red Blood Cell Count 3.93 M/uL (3.86-4.86)
--- NOTE | 2023-03-09 09:53 | RAD REPORT ---
EXAM DESCRIPTION: RAD - Chest Single View - 03/09/2023 9:29 am CLINICAL HISTORY: a fib Chest pain. COMPARISON: <Comparisons> FINDINGS: Portable technique limits examination quality. Moderate to large right pleural effusion suspected. The left lung appears grossly clear. The heart is mildly prominent in size. No displaced fractures.
[2023-03-09 09:56] LABS: Protime INR 1.04
[2023-03-09] MEDS ORDERED: dexAMETHasone 10 MG/ML VIAL ONE (10:13)
[2023-03-09 12:03] LABS: Bilirubin Direct 0.4 mg/dL (0-0.2); Bilirubin Indirect, Calculated 0.9 mg/dL (0.2-0.8); Bilirubin Total 1.3 mg/dL (0.2-1.0); Magnesium 2.1 mg/dL (1.6-2.4); Potassium 3.9 mEq/L (3.5-5.1); Protein, Total 5.7 g/dL (6.4-8.2); Troponin High Sensitivity 19.6 pg/mL (<58.9)
--- NOTE | 2023-03-09 13:43 | EDPHYS ---
Physician Documentation [facility] Name: Bessie Herman Age: 87 yrs Sex: Female : 1935 Arrival Date: 03/09/2023 Time: 09:02 Bed 2 Private MD: ELIE Physician Jayson Garcia HPI: 03/09 09:31 This 87 yrs old Female presents to ER via EMS with complaints of syncope. snw 09:31 The patient has experienced syncope, collapsed. Onset: The symptoms/episode snw began/occurred last pm around 2300. Duration: This was a single episode, pt supine on floor until 0600. Context: the episode(s) was witnessed, by no one, occurred at home, occurred while the patient was getting up from bed, Just prior to the episode the patient experienced dizziness. Associated signs and symptoms: The patient has no apparent associated signs or symptoms. Current symptoms: generalized discomfort. It is unknown whether or not the patient has had similar symptoms in the past. The patient has been recently seen by a physician: the patient's primary care provider, 2 month(s) ago, with different complaint(s), the patient was seen for check up, decreased blood pressure medications. Historical: - Allergies: 09:11 No Known Allergies; ld1 - Home Meds: 10:21 montelukast 10 mg oral tablet every day at bedtime [Active]; carvedilol 6.25 mg oral aa5 tablet 2 times per day [Active]; pravastatin 40 mg oral tablet every day at bedtime [Active]; amlodipine-olmesartan 10-40 mg oral tablet once [Active]; Vitamin D3 oral [Active]; - PMHx: 10:08 Hypertensive disorder; Asthma; Arthritis; Decreased Kidney function; ld1 10:35 Breast Cancer; aa5 - PSHx: 10:08 Bilat Knee Replacement; Right sided masectomy; Prolapse uterus; Prolapse Bladder; ld1 - Immunization history:: Adult Immunizations unknown. - Social history:: Smoking status: unknown. ROS: 09:30 Eyes: Negative for injury, pain, redness, and discharge, ENT: Negative for injury, snw pain, and discharge, Neck: Negative for injury, pain, and swelling, Cardiovascular: Negative for chest pain, palpitations, and edema, Respiratory: Negative for shortness of breath, cough, wheezing, and pleuritic chest pain, Abdomen/GI: Negative for abdominal pain, nausea, vomiting, diarrhea, and constipation, Back: Negative for injury and pain, : Negative for injury, bleeding, discharge, and swelling, :30 Skin: Negative for injury, rash, and discoloration, :30 Psych: Negative for depression, anxiety, suicide ideation, homicidal ideation, and hallucinations, :30 Constitutional: Positive for body aches, fatigue, malaise, : MS/extremity: Positive for pain, tenderness, of the joints, :30 Neuro: Positive for dizziness, syncope, Exam: 09:10 Eyes: Pupils equal round and reactive to light, extra-ocular motions intact. Lids and snw lashes normal. Conjunctiva and sclera are non-icteric and not injected. Cornea within normal limits. Periorbital areas with no swelling, redness, or edema. ENT: Nares patent. No nasal discharge, no septal abnormalities noted. Tympanic membranes are normal and external auditory canals are clear. Oropharynx with no redness, swelling, or masses, exudates, or evidence of obstruction, uvula midline. Mucous membranes moist. Neck: Trachea midline, no thyromegaly or masses palpated, and no cervical lymphadenopathy. Supple, full range of motion without nuchal rigidity, or vertebral point tenderness. No Meningismus. Chest/axilla: Normal chest wall appearance and motion. Nontender with no deformity. No lesions are appreciated. 09:10 Respiratory: Lungs have equal breath sounds bilaterally, clear to auscultation and percussion. No rales, rhonchi or wheezes noted. No increased work of breathing, no retractions or nasal flaring. Abdomen/GI: Soft, non-tender, with normal bowel sounds. No distension or tympany. No guarding or rebound. No evidence of tenderness throughout. Back: No spinal tenderness. No costovertebral tenderness. Full range of motion. 09:10 MS/ Extremity: Pulses equal, no cyanosis. Neurovascular intact. Full, normal range of motion. generalized tenderness 09:10 Constitutional: The patient appears awake, frail, uncomfortable, 09:10 Head/face: Noted is ecchymosis, that is mild, of the forehead, 09:10 Cardiovascular: Rate: tachycardic, Rhythm: irregularly irregular, Pulses: no pulse deficits are appreciated, Heart sounds: gallop, Edema: is not appreciated, JVD: is not appreciated, 09:10 Skin: Appearance: bronze coloration, Vital Signs: 09:05 BP 109 / 77; Pulse 104; Resp 19; Temp 97.8; Pulse Ox 97% on R/A; rs5 09:07 BP 112 / 62; Pulse 105; Resp 20; Temp 97.6(O); Pulse Ox 98% on R/A; Weight 53.07 kg; ld1 Height 5 ft. 4 in. ; 10:10 BP 114 / 68; Pulse 100; Resp 18; Pulse Ox 99% on R/A; rs5 11:05 BP 116 / 77; Pulse 102; Resp 20; Pulse Ox 96% on R/A; rs5 12:02 BP 101 / 88; Pulse 101; Resp 18; Pulse Ox 99% on R/A; rs5 13:48 BP 101 / 75; Pulse 115; Resp 20; Pulse Ox 95% on R/A; hb 14:34 BP 106 / 82; Pulse 101; Resp 22; Pulse Ox 97% ; hb 15:31 BP 108 / 80; Pulse 94; Resp 18; Pulse Ox 99% on R/A; aa5 16:20 BP 110 / 82; Pulse 96; Resp 17; Pulse Ox 99% on R/A; rs5 09:07 Body Mass Index 20.08 (53.07 kg, 162.56 cm) ld1 MDM: 09:07 Patient medically screened. snw 09:57 Differential Diagnosis: cardiac arrhythmia, cerebrovascular accident, seizure, snw vasovagal episode. Data reviewed: vital signs, nurses notes. I considered the following discharge prescriptions or medication management in the emergency department Medications were administered in the Emergency Department. See MAR. Historians other than the Patient: Family Member: Sister. Counseling: I had a detailed discussion with the patient and/or guardian regarding the historical points, exam findings, and any diagnostic results supporting the discharge/admit diagnosis, Ct of Brain mass showed to pt and family. Recommend transfer. Sister states Pt was treated for breast ca at [facility]. Awaiting: labs results. 09:59 ED course: Pleural effusion, Brain mass,. snw 11:23 ED course: continue to await labs, charge nurse notified. snw 13:25 Management of patient was discussed with the following: Telephone Recorder: Dr. El, Neuro snw Fellow who accepts consult for Farhan Galvan . ED course: Spoke with Neuro Fellow Dr. El. Agrees to hold anti-coagulation, will give NS 500ml bolus and Keppra 500mg IV as requested.. 13:38 Management of patient was discussed with the following: Hospitalist: Dr. Mandeep velázquez w accepts pt in transfer. . 03/09 09:07 Order name: Basic Metabolic Panel; Complete Time: 12:12 snw 03/09 09:07 Order name: CBC with Diff; Complete Time: 10:23 snw 03/09 09:07 Order name: LFT's; Complete Time: 12:12 snw 03/09 09:07 Order name: Magnesium; Complete Time: 12:12 snw 03/09 09:07 Order name: NT PRO-BNP; Complete Time: 12:12 snw 03/09 09:07 Order name: PT-INR; Complete Time: 10:23 snw 03/09 09:07 Order name: Troponin HS; Complete Time: 12:12 snw 03/09 09:07 Order name: CPK; Complete Time: 12:12 snw 03/09 09:07 Order name: XRAY Chest (1 view); Complete Time: 09:59 snw 03/09 09:07 Order name: CT Traumagram (Head C Spine CAP wo con); Complete Time: 09:49 snw 03/09 09:07 Order name: EKG; Complete Time: 09:08 snw 03/09 09:07 Order name: Cardiac monitoring; Complete Time: 09:33 snw 03/09 09:07 Order name: EKG - Nurse/Tech; Complete Time: 09:33 snw 03/09 09:07 Order name: IV Saline Lock; Complete Time: 09:33 snw 03/09 09:07 Order name: Labs collected and sent; Complete Time: 09:33 snw 03/09 09:07 Order name: O2 Per Protocol; Complete Time: 09:33 snw 03/09 09:07 Order name: O2 Sat Monitoring; Complete Time: 09:33 snw 03/09 09:43 Order name: Misc. Order: Please document pt's home meds; Complete Time: 10:34 snw EC:41 Rate is 112 beats/min. Rhythm is irregularly irregular. QRS [place] is Normal. T waves are snw Flattened in leads V4, V5, V6. Clinical impression: Atrial Fibrillation and new onset. Administered Medications: 10:07 Drug: Decadron - Dexamethasone IVP 10 mg IVP once Route: IVP; Site: right antecubital; ld1 10:22 Follow up: Response: No adverse reaction ld1 13:30 Drug: NS 0.9% IV 500 ml IV at bolus continuous Route: IV; Rate: bolus; Site: right rs5 antecubital; 13:45 Follow up: Response: No adverse reaction rs5 13:30 Drug: Keppra IV 500 mg IV at calculated rate once Route: IV; Rate: calculated rate; rs5 Site: right antecubital; 13:45 Follow up: Response: No adverse reaction rs5 Disposition: 12:13 Co-signature as Attending Physician, Jayson Garcia MD I agree with the assessment and cp3 plan of care. Disposition Summary: 03/09/23 13:42 Transfer Ordered Notes: Transfer Location: [facility] snw Reason: Higher level of care snw Condition: Stable snw Problem: new snw Symptoms: are unchanged snw Accepting Physician: Dr. Kaufman(03/09/23 16:42) rs5 Diagnosis - Neoplasm of uncertain behavior of brain, unspecified snw - Pleural effusion in other conditions classified elsewhere snw - Unspecified atrial fibrillation snw - Hypo-osmolality and hyponatremia snw Forms: - Medication Reconciliation Form snw - SBAR form snw Critical care time excluding procedures: 13:43 Critical care time: Bedside Care: 5 minutes, Consultation: 20 minutes, Family snw Intervention: 5 minutes. Total time: 30 minutes Signatures: Dispatcher [employer] EDMS Yuki Alba FNP-C CALL CENTER ASSISTANT-Csnw Jayson Garcia MD MD cp3 Kala Spear RN RN aa5 Ly Farias RN RN ld1 Evan Giordano RN RN rs5 Corrections: (The following items were deleted from the chart) 09:49 09:11 PMHx: Angina pectoris; ld1 ld1 09:49 09:11 PMHx: Cerebrovascular accident; ld1 ld1 09:49 09:11 PMHx: Chronic obstructive lung disease; ld1 ld1 09:11 PMHx: Congestive heart failure; ld1 ld:11 PMHx: Coronary atherosclerosis; ld1 ld 09:11 PMHx: Diabetes mellitus; ld1 :11 PMHx: Headache; ld1 ld:11 PMHx: History of urinary tract infection; ld1 ld: PMHx: Hypertensive disorder; ld1 :11 PMHx: Hypothyroidism; ld1 :11 PMHx: Myocardial infarction; ld1 ld:11 PMHx: Pneumonia; ld1 ld 09:11 PMHx: Seizure; ld1 09:11 PMHx: Transient cerebral ischemia; ld1 ld1 16:42 13:42 Dr. Mandeep smiley rs5
--- NOTE | 2023-03-09 13:43 | ER ---
Nurse's Notes [facility] Name: Bessie Herman Age: 87 yrs Sex: Female : 1935 Arrival Date: 03/09/2023 Time: 09:02 Bed 2 Private MD: Diagnosis: Neoplasm of uncertain behavior of brain, unspecified;Pleural effusion in other conditions classified elsewhere;Unspecified atrial fibrillation;Hypo-osmolality and hyponatremia Presentation: 03/09 09:07 Chief complaint: EMS states: Pt fell last night around eleven and lay there until six ld1 this morning. Pt did not have LOC, reports weakness, diarrhea, and blood in urine X1 week. Coronavirus screen: At this time, the client does not indicate any symptoms associated with coronavirus-19. Ebola Screen: No symptoms or risks identified at this time. 09:07 Method Of Arrival: EMS: [facility] ld1 09:10 Initial Sepsis Screen: Does the patient meet any 2 criteria? HR > 90 bpm. Yes Does the ld1 patient have a suspected source of infection? No. Patient's initial sepsis screen is negative. Risk Assessment: Do you want to hurt yourself or someone else? Patient reports no desire to harm self or others. Onset of symptoms was March 08, 2023. 09:10 Acuity: HUEY 2 hb Historical: - Allergies: 09:11 No Known Allergies; ld1 - Home Meds: 10:21 montelukast 10 mg oral tablet every day at bedtime [Active]; carvedilol 6.25 mg oral aa5 tablet 2 times per day [Active]; pravastatin 40 mg oral tablet every day at bedtime [Active]; amlodipine-olmesartan 10-40 mg oral tablet once [Active]; Vitamin D3 oral [Active]; - PMHx: 10:08 Hypertensive disorder; Asthma; Arthritis; Decreased Kidney function; ld1 10:35 Breast Cancer; aa5 - PSHx: 10:08 Bilat Knee Replacement; Right sided masectomy; Prolapse uterus; Prolapse Bladder; ld1 - Immunization history:: Adult Immunizations unknown. - Social history:: Smoking status: unknown. Screenin:34 [facility] ED Fall Risk Assessment (Adult) Score/Fall Risk Level 3 or more points = High hb Risk Oriented to surroundings, Maintained a safe environment, Educated pt \T\ family on fall prevention, incl call for assistance when getting out of bed, Assessed \T\ reinforced patient's understanding of fall precautions. Abuse screen: Denies threats or abuse. Denies injuries from another. Nutritional screening: No deficits noted. Tuberculosis screening: No symptoms or risk factors identified. Assessment: 09:12 General: Appears in no apparent distress. comfortable, Behavior is calm, cooperative. ld1 Pain: Denies pain. Neuro: Level of Consciousness is awake, alert, obeys commands, Oriented to person, place, time, situation. Cardiovascular: Denies chest pain, Heart tones S1 S2 present Rhythm is atrial fibrillation. Respiratory: Airway is patent Respiratory effort is even, unlabored, Respiratory pattern is regular, symmetrical, Breath sounds are clear bilaterally. GI: Abdomen is round non-distended, Bowel sounds present X 4 quads. Abd is soft and non tender X 4 quads. : No signs and/or symptoms were reported regarding the genitourinary system. EENT: No signs and/or symptoms were reported regarding the EENT system. Derm: Skin is pink, warm \T\ dry. Musculoskeletal: Range of motion: intact in all extremities, Pt family reports pt ambulates with a walker at home, steady gate, slowly. 10:00 Reassessment: To bedside with pure wick per pt request. ld1 10:39 Reassessment: Patient and/or family updated on plan of care and expected duration. Pain ld1 level reassessed. Patient is alert, oriented x 3, equal unlabored respirations, skin warm/dry/pink. Patient denies pain at this time. 11:30 Reassessment: No changes from previously documented assessment. rs5 12:03 Reassessment: Patient and/or family updated on plan of care and expected duration. Pain rs5 level reassessed. Patient is alert, oriented x 3, equal unlabored respirations, skin warm/dry/pink. Patient denies pain at this time. 13:30 Reassessment: To bedside for med adm, blanket provided per pt request. aa5 13:48 Reassessment: Patient appears in no apparent distress at this time. Patient and/or hb family updated on plan of care and expected duration. Pain level reassessed. Patient is alert, oriented x 3, equal unlabored respirations, skin warm/dry/pink. 14:34 Reassessment: Patient appears in no apparent distress at this time. No changes from hb previously documented assessment. 15:00 Reassessment: Failed attempt to call report. rs5 15:10 Reassessment: Report called to DENIS Ruiz from [facility] 12 tower. rs5 16:10 Reassessment: Patient and/or family updated on plan of care and expected duration. Pain rs5 level reassessed. Patient is alert, oriented x 3, equal unlabored respirations, skin warm/dry/pink. Patient denies pain at this time. 16:20 Reassessment: Report given to [facility], EMS. rs5 Vital Signs: 09:05 BP 109 / 77; Pulse 104; Resp 19; Temp 97.8; Pulse Ox 97% on R/A; rs5 09:07 BP 112 / 62; Pulse 105; Resp 20; Temp 97.6(O); Pulse Ox 98% on R/A; Weight 53.07 kg; ld1 Height 5 ft. 4 in. ; 10:10 BP 114 / 68; Pulse 100; Resp 18; Pulse Ox 99% on R/A; rs5 11:05 BP 116 / 77; Pulse 102; Resp 20; Pulse Ox 96% on R/A; rs5 12:02 BP 101 / 88; Pulse 101; Resp 18; Pulse Ox 99% on R/A; rs5 13:48 BP 101 / 75; Pulse 115; Resp 20; Pulse Ox 95% on R/A; hb 14:34 BP 106 / 82; Pulse 101; Resp 22; Pulse Ox 97% ; hb 15:31 BP 108 / 80; Pulse 94; Resp 18; Pulse Ox 99% on R/A; aa5 16:20 BP 110 / 82; Pulse 96; Resp 17; Pulse Ox 99% on R/A; rs5 09:07 Body Mass Index 20.08 (53.07 kg, 162.56 cm) ld1 ED Course: 09:05 Patient arrived in ED. aa5 09:06 Yuki Alba FNP-C is PHCP. snw 09:06 Jayson Garcia MD is Attending Physician. snw 09:07 Ly Farias, DENIS is Primary Nurse. ld1 09:11 Triage completed. ld1 09:21 CT Traumagram (Head C Spine CAP wo con) In Process Unspecified. EDMS 09:28 XRAY Chest (1 view) In Process Unspecified. EDMS 09:34 Arm band placed on. hb 09:34 Patient has correct armband on for positive identification. Placed in gown. Bed in low hb position. Call light in reach. Provided Education on: TESTS. 12:20 intensive care unit registered nurse initiated transfer with [facility]; transfer denied due to em1 capacity. 16:39 No provider procedures requiring assistance completed. Patient transferred, IV remains rs5 in place. Administered Medications: 10:07 Drug: Decadron - Dexamethasone IVP 10 mg IVP once Route: IVP; Site: right antecubital; ld1 10:22 Follow up: Response: No adverse reaction ld1 13:30 Drug: NS 0.9% IV 500 ml IV at bolus continuous Route: IV; Rate: bolus; Site: right rs5 antecubital; 13:45 Follow up: Response: No adverse reaction rs5 13:30 Drug: Keppra IV 500 mg IV at calculated rate once Route: IV; Rate: calculated rate; rs5 Site: right antecubital; 13:45 Follow up: Response: No adverse reaction rs5 Medication: 09:34 VIS not applicable for this client. hb Outcome: 13:42 ER care complete, transfer ordered by snw 16:39 Transferred by ground EMS to other acute care facility: [facility], rs5 [place]. 16:39 Condition: stable 16:39 Instructed on the need for transfer, Demonstrated understanding of instructions, 16:42 Patient left the ED. rs5 Signatures: Dispatcher [employer] EDMS Yuki Alba, KATHY MAIL READER-Larry Bull em1 Kala Spear, RN RN aa5 Rona Angel RN RN Ly Farias RN RN ld1 Evan Giordano, RN RN rs5 Corrections: (The following items were deleted from the chart) 09:34 09:10 Acuity: HUEY 3 ld1 hb 09:49 09:11 PMHx: Angina pectoris; ld1 ld1 09:49 09:11 PMHx: Cerebrovascular accident; ld1 ld1 09:49 09:11 PMHx: Chronic obstructive lung disease; ld1 ld1 09:49 09:11 PMHx: Congestive heart failure; ld1 ld1 09:11 PMHx: Coronary atherosclerosis; ld1 ld1 09:11 PMHx: Diabetes mellitus; ld1 ld1 09:11 PMHx: Headache; ld1 ld1 09:11 PMHx: History of urinary tract infection; ld1 ld1 09:11 PMHx: Hypertensive disorder; ld1 ld1 09:11 PMHx: Hypothyroidism; ld1 ld1 09:11 PMHx: Myocardial infarction; ld1 ld1 09:11 PMHx: Pneumonia; ld1 ld1 09:11 PMHx: Seizure; ld1 ld1 09:11 PMHx: Transient cerebral ischemia; ld1 ld1 12:02 10:39 BP 109 / 77; Pulse 104bpm; Resp 19bpm; Pulse Ox 97% RA; Temp 97.8F; ld1 rs5 12:02 11:32 BP 116 / 77; Pulse 102bpm; Resp 20bpm; Pulse Ox 96% RA; hb rs5
[2023-03-09] MEDS ORDERED: LEVETIRACETAM 500 MG/5 ML VIAL IV ONE (13:52)
[2023-03-09] MEDS ORDERED: NA CHLORIDE 0.9% 500 ML ONE (13:53)
[2023-03-09] MEDS ORDERED: NA CHLORIDE 0.9% 100 ML ONE (14:03)
[2023-03-09 18:06] VITALS: TEMP 97.6
[2023-03-09 18:20] VITALS: O2SAT 99
[2023-03-09 18:21] VITALS: BP 110/82
--- NOTE | 2023-03-10 17:15 | EKG ---
Test Date: 2023-03-09 Test Time: 09:34:53 It Security Engineer: HB MEASUREMENT RESULTS: Intervals: Rate: 112 IN: QRSD: 76 QT: 290 QTc: 395 [place]: P: IN: QRS: 36 T: 236 INTERPRETIVE STATEMENTS: Atrial fibrillation with rapid ventricular response Low voltage QRS Nonspecific ST and T wave abnormality Abnormal ECG No previous ECG available for comparison Electronically Signed On 03-10-23 17:11:46 CDT by Ar Alegria
--- NOTE | 2023-03-10 17:15 | EKG ---
Test Date: 2023-03-09 Test Time: 09:35:39 Insole Presser: HB MEASUREMENT RESULTS: Intervals: Rate: 103 DE: QRSD: 76 QT: 306 QTc: 400 [place]: P: DE: QRS: 24 T: -75 INTERPRETIVE STATEMENTS: Atrial fibrillation with rapid ventricular response Low voltage QRS Septal infarct, age undetermined Abnormal ECG Compared to ECG 03/09/2023 09:34:53 Myocardial infarct finding now present ST (T wave) deviation no longer present Electronically Signed On 03-10-23 17:11:44 CDT by Ar Alegria
== END 2023-03-09 16:42 | disposition short-term general hospital (02) ==
LOC: ER 09:02
DX: D43.2 Neoplasm of uncertain behavior of brain, unspecified (principal); J91.8 Pleural effusion in other conditions classified elsewhere; I48.91 Unspecified atrial fibrillation; E87.1 Hypo-osmolality and hyponatremia; I10 Essential (primary) hypertension; Z85.3 Personal history of malignant neoplasm of breast; Z90.11 Acquired absence of right breast and nipple
CPT/HCPCS: 93005 ×2; 85025; 80048; 36415; 83735; 82550; 85610; 80076; 84484; 83880; 70450; 71250; 72125; 71045; 96375; 96374; 99285; J1953; J1100; J7040